=== PATIENT | female | born 1935 | race Caucasian/White ===

== ENCOUNTER 2017-10-23 09:08 | Inpatient (IN) | payer OTHER ==
--- NOTE | 2017-10-25 12:10 | R.PREADM ---
SCREENING DATE AND TIME 10/25/2017 10:18 (CDT) ANTICIPATED REHAB ADMISSION DATE 10/27/2017 REFERRING FACILITY [facility] REFERRAL DATE AND TIME 10/25/2017 10:18 (CDT) ACUTE ADMIT DATE 10/16/2017 Previous Rehabilitation(s): No. REFERRING PHYSICIAN Dayton Garcia REHAB FACILITY [facility] CLINICAL LIAISON Guille Argaon PHYSICIAN REVIEWER Dr. Daren Kim M.D. [facility]# [id number] [id number] NAME HARINDER HENSLEY AD[address]ESS [id number] [facility] PHONE [facility] [id number] DATE OF 1935 AGE 81 SSN# [id number] GENDER female MARITAL STATUS RACE white ADMIT FROM 02 - [facility] PRE-HOSPITAL LIVING SETTING 01 - Home (private home/apt. board/care, assisted living, senior living, transitional living) HOME TYPE AND DETAILS Type of home: single family house # of steps to enter the residence: 0 # of steps within the residence: 0 # of levels in the residence: 1 PRE-HOSPITAL LIVING WITH Family/Relatives FAMILY SUPPORT Yes PRIMARY FAMILY CONTACT NAME Lorena Guan PRIMARY FAMILY CONTACT PHONE PHONE PRIMARY FAMILY CONTACT ON ADM.? no IS PRIMARY FAMILY CONTACT AUTH. REP.? no 1ST EMERGENCY CONTACT Lorena Guan 1ST CONTACT PHONE PHONE 1ST CONTACT ON ADM. no IS 1ST CONTACT AUTH. REP.? no PHONE 2ND CONTACT ON ADM.? no PATIENT EMPLOYMENT STATUS Retired (for age) PATIENT EMPLOYER No Employer PAYOR INFORMATION: 1ST PAYOR NAME Medicare 1ST PAYOR PHONE 1ST PAYOR INJURY/ILLNESS DUE TO ACCIDENT? No ANOTHER CONSTITUTION PARTY RESPONSIBLE? No PRIMARY REHAB/ACUTE DIAGNOSIS: right bka ONSET DATE 10/16/2017 REHAB IMPAIRMENT CATEGORY (YAKOV): 10 Amputation, lower extremity (Amp/LE) MEETS 60% rule AFFECTED EXTREMITIES: RLE PRIMARY DIAGNOSIS-RELATED SURGERIES: Emergency Amputation of Limb(Unilateral Lower Limb Below the Knee (BK)) - performed by Dayton harper on 10/16/2017 COMORBID REHAB/ACUTE DIAGNOSES: - Non-Tiered Type 2 diabetes mellitus with diabetic neuropathy, unspecified (E11.40) - N/A hypertension pvd left bka INTERVENTIONS: - Hypertension Fluid management Medications VS - PVD Platt exercises Medications RISK FOR COMPLICATIONS: - Hypertension CVA Hypotension OK TIA - PVD Amputation Gangrene Infection Ischemic ulcers Sepsis Wounds SUMMARY OF ACUTE HOSPITALIZATION: Pt. is a 81 yo Right-handed white female. On 10/16/2017 she was admitted to [facility] and underwent emergency surgery for righ t bka (Amputation of Limb(Unilateral Lower Limb Below the Knee (BK))) by Dayton Garcia. Pre-morbidly, Pt. was independent/mod-I in Communication, Social Cognition, Self-Care, Sphincter Cont rol, Transfers Control, and Locomotion; and she had good Sphincter Control. Currently, she has deficits of Communication, Social Cognition, Balance, Self-Care, Endurance, Safety Awareness, Transfers Control, and Locomotion. Pt. is now referred to [facility] for acute in-patient rehabilitation in order to maximize patient's functional independence in activities of daily living, strength, ROM, and mobi lity. Patient has realistic goal of being discharged at assistance level 6-Juanito to reside at Home with Fam kali/Relatives. CONSULT: Consult Certified Prosthetic for prosthesis construction PAST MEDICAL HISTORY Type 2 diabetes mellitus with diabetic neuropathy, unspecified (E11.40) hypertension left bka pvd MEDICATION ALLERGIES: morphine ENVIRONMENTAL ALLERGIES: - Substance Allergies None Known - Other Allergies None Known CODE STATUS: Full code WEIGHT/HEIGHT/BMI: WEIGHT 123 lbs HEIGHT 4' 10" BMI 25.7 DIET: - Diet Type Regular - Diet - Solid Texture Regular - Diet - Liquid Texture Regular - Tube Feed N/A SKIN DIAGRAM: amputation on Right knee; extent - small; stage - NS(Not Stageable). Treatment - Per Physician's Orde rs. REVIEW OF SYSTEMS: - Gen Alert and awake Lying in bed No apparent distress Oriented to: person, time, and place - CVS RRR VITAL SIGNS Temperature: 98.4 F SBP/DBP: 160/70 Pulse: 78 Resp: 16 Vital signs stable, afebrile CURRENT SPHINCTER CONTROL: Pre-hospital bladder status: continent # of bladder accidents in the last 7 days prior to screenin Pre-hospital bowel status: continent # of bowel accidents in the last 7 days prior to screenin Last Bowel Movement Date: 10/25/2017 DETAILED CURRENT FUNCTIONAL STATUS: - Bladder accident frequency: Ind - No accidents in the past 7 days - Bowel accident frequency: Ind - No accidents in the past 7 days - Walking score based on distance walked: 1(<=50ft) FUNCTIONAL STATUS: - Self-Care A. Eating Ind sup B. Grooming Juanito sup C. Bathing Juanito sup D. Dressing - Upper Juanito Ronn E. Dressing - Lower Juanito Dep F. Toileting Dep Dep - Sphincter Control G: Bladder control Ind Dep H: Bowel control Ind Dep - Transfers Control I. Bed/Chair/Wheelchair Ind maxA J. Toilet Ind maxA K. Tub/Shower Ind maxA - Locomotion L. Walk/Wheelchair (B) Ind Dep M. Stairs Ind ADNO - Communication N. Comprehension (B) Ind Ronn O. Expression (B) Ind Ronn - Social Cognition P. Social Interaction Ind Ronn Q. Problem Solving Ind Ronn R. Memory Ind Ronn - Endurance Poor - Balance Poor - Safety Awareness Poor CURRENT FUNC. DEFICITS: Communication, Social Cognition, Balance, Self-Care, Endurance, Safety Awareness, Transfers Control, and Locomotion THERAPY NOTES FROM ACUTE CARE: Attached. SPECIAL NEEDS: - Safety Concerns Skin breakdown precautions needed due to skin breakdown risk PRECAUTIONS: - Weight Bearing Precaution NWB both LE PATIENT NEEDS ACTIVE AND ONGOING THERAPEUTIC INTERVENTION OF MULTIPLE THERAPY DISCIPLINES, INCLUDING: - Orthotics/Prosthetics Prosthetic Evaluation. - Occupational Therapy Evaluate and Treat. - Physical Therapy Evaluate and Treat. PATIENT NEEDS CLOSE MEDICAL SUPERVISION BY A REHABILITATION PHYSICIAN FOR: Bowel and Bladder Management Coordination of Treatment Team Diabetes Management Medical and Co-Morbidity Management Post-Op Complications Wound Care PATIENT REQUIRES 24X7 REHAB NURSING FOR MEDICAL AND FUNCTIONAL MGT. OF THE FOLLOWING DEFICITS: ADL's Ambulation Bowel and Bladder Management Cognition Communication Disease Management Medication Management Patient/Family Education Providing Safe Environment Skin Integrity Transfers PATIENT REQUIRES INTENSIVE, COORDINATED INTERDISCIPLINARY APPROACH TO REHAB: Arranging Home Equipment/Services Discharge Planning Family Intervention/Training Consulting Sme/Case Management PATIENT REHAB POTENTIAL: Expected level of measurable improvement will be of a practical value to patient's functional capacit y or adaptations to impairments Has a viable Discharge Plan Medically appropriate; condition is sufficiently stable to participate in intensive rehab program Patient is able and expected to receive 3 hours of individualized therapy daily on at least 5 of ever y 7 days Patient's prognosis for significant practical improvement within a reasonable period of time appears Good DISCHARGE PLAN: - Estimated Length of Stay (days) 11. - Consensus on plan Discharge plan has been discussed with primary caregiver. Patient/Family is in agreement with the gypsy n. Primary caregiver is in agreement with the plan. - Patient/Family Goals Return home with assistance. - Planned Living Setting Upon Discharge Home, to live with Family/Relatives. RECOMMENDED CARE LEVEL: IRF RECOMMENDATION DETAILS: Recommended Admission to Comprehensive Rehabilitation Program to Increase Functional [place] SCREENER'S COMPLETENESS CONFIRMATION: - Screening Confirmation The patient data collection on this preadmission screening form is finished PHYSICIANS REVIEW AND ADMISSION DETERMINATION Admit - Based on my review of the Pre-Admission Screening results, in my medical judgment and experie nce, I concur with the findings and recommend admission to [facility], as this patient requires an IRF level of care. SIGNATURE PANEL: Clinical Liaison - [electronically] signed by Olga Perez on 10/25/2017 at 10:47 (CDT) Clinical Liaison - [electronically] signed by Guille Aragon on 10/25/2017 at 12:07 (CDT) Physician Reviewer - [electronically] signed by Dr. Daren Kim M.D. on 10/25/2017 at 12:09 (CDT )
--- NOTE | 2017-10-25 18:56 | R.HP ---
FACILITY: [facility] ENCOUNTER DATE AND TIME: 10/25/2017 18:49 (CDT) MR#: [id number] NAME HARINDER HENSLEY ADDRESS: [address] [place] [address]: [place] [address] PHONE: DATE OF : 1935 AGE: 81 SSN# [id number] GENDER: Female DEXTERITY Right-handed MARITAL STATUS RACE White PRE-HOSPITAL LIVING SETTING 01 - Home (private home/apt. board/care, assisted living, halfway, transitional living) PRE-HOSPITAL LIVING WITH Family/Relatives ENCOUNTER PHYSICIAN: Dr. Daren Kim M.D. REFERRING DOCTOR: Dayton Garcia DATE OF ADMISSION: 10/25/2017 18:49 (Central Daylight Time) REFERRING FACILITY [facility] HOME TYPE AND DETAILS: Type of home: single family house # of steps to enter the residence: 0 # of steps within the residence: 0 # of levels in the residence: 1 ADMISSION DIAGNOSIS: right bka ONSET DATE: 10/16/2017 PRIMARY DIAGNOSIS-RELATED SURGERIES: Emergency Amputation of Limb(Unilateral Lower Limb Below the Knee (BK)) - performed by Dayton harper on 10/16/2017 SECONDARY/COMORBID DIAGNOSES (TIERED): - Non-Tiered Type 2 diabetes mellitus with diabetic neuropathy, unspecified (E11.40) - N/A hypertension pvd left bka HISTORY OF PRESENT ILLNESS (HPI): Pt. is a 81 yo Right-handed white female. On 10/16/2017 she was admitted to [facility] and underwent emergency surgery for righ t bka (Amputation of Limb(Unilateral Lower Limb Below the Knee (BK))) by Dayton Garcia. Pre-morbidly, Pt. was independent/mod-I in Communication, Social Cognition, Self-Care, Sphincter Cont rol, Transfers Control, and Locomotion; and she had good Sphincter Control. Currently, she has deficits of Communication, Social Cognition, Balance, Self-Care, Endurance, Safety Awareness, Transfers Control, and Locomotion. Pt. is now referred to [facility] for acute in-patient rehabilitation in order to maximize patient's functional independence in activities of daily living, strength, ROM, and mobi lity. Patient has realistic goal of being discharged at assistance level 6-Juanito to reside at Home with Fam kali/Relatives. MEDICATION ALLERGIES: morphine ENVIRONMENTAL ALLERGIES: - Substance Allergies None Known - Other Allergies None Known PAST MEDICAL HISTORY: Type 2 diabetes mellitus with diabetic neuropathy, unspecified (E11.40) hypertension left bka pvd FAMILY HISTORY: Family history is not contributory. SOCIAL HISTORY: - Home Living Family/Relatives REVIEW OF SYSTEMS: - Gen No Chills No Fatigue No Fever - Eyes No Double Vision No itchiness - ENMT Difficulty Swallowing - CVS No Chest Discomfort No Chest Pain No Fatigue No Weight Gain - Resp No Cough No Shortness of Breath - GI Continent No Abdominal Pain No Constipation No Diarrhea - Continent No Kidney Pain No Painful Urination No Urinary Urgency - MSK No Joint Pain No Muscle Cramps No Stiffness - Skin No Itching No Rash No Suspicious Lesions - Neuro Coordination Difficulty Difficulty with Concentration Memory Loss No Seizures Weakness - Psych No Anxiety No Depression No HIV Exposure No Persistent Infections No Seasonal Allergies - Endo No Cold/Heat Intolerance No Excessive Hunger No Excessive Thirst No Excessive Urination PHYSICAL EXAM - Gen Alert and awake Lying in bed No apparent distress Oriented to: person, time, and place - Skin No breakdowns Mild decreased right nasolabial fold with good excursion. - Eyes No abnormalities - ENMT No abnormalities - Neck No abnormalities - CVS RRR - Chest Clear - Abd +bowel sounds - GI + bowel sound Deferred - No abnormalities - Ext no edema - MSK 4+/5 weakness in right lower extremity, 3/5 weakness in the right hand flexion and extension. - Neuro 4+/5 weakness in right lower extremity, 3/5 weakness in the right hand flexion and extension. - Psych No abnormalities - OTHER Mild expressive aphasia, decrease speed of information processing. VITAL SIGNS Temperature: 98.4 F SBP/DBP: 160/70 Pulse: 78 Resp: 16 NURSING: - Shower allowing shower - Lab Results blood Sugar Check ACHS - Skin care per protocol PRECAUTIONS: - Weight Bearing Precaution NWB both LE ACTIVITIES OOB only with supervision FUNCTIONAL STATUS: - Self-Care A. Eating Ind sup B. Grooming Juanito sup C. Bathing Juanito sup D. Dressing - Upper Juanito Ronn E. Dressing - Lower Juanito Dep F. Toileting Dep Dep - Sphincter Control G: Bladder control Ind Dep H: Bowel control Ind Dep - Transfers Control I. Bed/Chair/Wheelchair Ind maxA J. Toilet Ind maxA K. Tub/Shower Ind maxA - Locomotion L. Walk/Wheelchair (B) Ind Dep M. Stairs Ind ADNO - Communication N. Comprehension (B) Ind Ronn O. Expression (B) Ind Ronn - Social Cognition P. Social Interaction Ind Ronn Q. Problem Solving Ind Ronn R. Memory Ind Ronn - Endurance Poor - Balance Poor - Safety Awareness Poor CURRENT FUNC. DEFICITS: Communication, Social Cognition, Balance, Self-Care, Endurance, Safety Awareness, Transfers Control, and Locomotion ASSESSMENT: Pt. is a 81 yo Right-handed white female.On 10/16/2017 she was admitted to [facility] and underwent emergency surgery for right bka (Amputation of Limb(Unilateral Lower Limb Below the Kn ee (BK))) by Dayton Garcia.Pre-morbidly, Pt. was independent/mod-I in Communication, Social Cogni tion, Self-Care, Sphincter Control, Transfers Control, and Locomotion; and she had good Sphincter Con trol.Currently, she has deficits of Communication, Social Cognition, Balance, Self-Care, Endurance, S afety Awareness, Transfers Control, and Locomotion.Pt. is now referred to [facility] for acute in-patient rehabilitation in order to maximize patient's functional independence in activities of daily living, strength, ROM, and mobility.- Rehab Goal Patient has realistic goal of being discharged at assistance level 6-Juanito to reside at Home with Fam kali/Relatives. REHAB PLAN: - Physical Therapy Gait dysfunction - to improve, our physical therapists will perform initial evaluation of pt's status upon admission and devise an individualized program for Gait Training, and Wheel Chair mobility Inability to transfer - to improve, our physical therapists will perform initial evaluation of pt's s tatus upon admission and devise an individualized program for Bed mobility Need for home safety evaluation - to improve, our physical therapists will perform initial evaluation of pt's status upon admission and devise an individualized program for Home Evaluation Need in caregiver upon discharge - to improve, our physical therapists will perform initial evaluatio n of pt's status upon admission and devise an individualized program for Caregiver Training New precaution - to improve, our physical therapists will perform initial evaluation of pt's status u beau admission and devise an individualized program for Patient precaution education Poor balance - to improve, our physical therapists will perform initial evaluation of pt's status upo n admission and devise an individualized program for Balance Training Poor endurance - to improve, our physical therapists will perform initial evaluation of pt's status u beau admission and devise an individualized program for Endurance Training Weakness - to improve, our physical therapists will perform initial evaluation of pt's status upon ad mission and devise an individualized program for Aquatic Therapy, Neuromuscular Reeducation, and Stre ngthening Achieving independence - to improve, our physical therapists will perform initial evaluation of pt's status upon admission and devise an individualized program for Community Reintegration Activities - Occupational Therapy ADL deficits - to improve, our occupation therapists will perform initial evaluation of pt's status u beau admission and devise an individualized program for Bathing, Bed mobility, Community Reintegration , Cooking, Dressing, Eating, Fine Motor Skills, Grooming, Homemaking, Kitchen Mobility, Laundry, Brigid ent Education, Safety Awareness, Splinting - Positioning, Transfers(Toilet, Tub, Shower), and Wheel C hair Management Cognitive deficits - to improve, our occupation therapists will perform initial evaluation of pt's st atus upon admission and devise an individualized program for Cognition - orientation Need for child care education coordinator - to improve, our occupation therapists will perform initial evaluation of pt's s tatus upon admission and devise an individualized program for Caregiver Training Weakness - to improve, our occupation therapists will perform initial evaluation of pt's status upon admission and devise an individualized program for Aquatic Therapy, Balance, Endurance, UE ROM, and U E strengthening MEDICAL PLAN: - Diet Type Start Regular - Diet - Liquid Texture Start Regular - Tube Feed Start N/A - Lab Results blood Sugar Check ACHS - Weight Bearing Precaution WBAT right wrist - Skin care per protocol - N/A Perform Consult Certified Prosthetic for prosthesis construction - Diet - Solid Texture Regular - Shower shower DISCHARGE PLAN: - Estimated Length of Stay (days) 11. - Consensus on plan Discharge plan has been discussed with primary caregiver. Patient/Family is in agreement with the gypsy n. Primary caregiver is in agreement with the plan. - Patient/Family Goals Return home with assistance. - Planned Living Setting Upon Discharge Home, to live with Family/Relatives. SIGNATURE PANEL: (CDT)
--- NOTE | 2017-10-25 18:59 | PAPE ---
PATIENT: [facility] MR# [id number] REFERRING DOCTOR Dayton Garcia EVALUATION DATE AND TIME 10/25/2017 18:57 (CDT) NAME HARINDER HENSLEY DATE OF 1935 AGE 81 PHONE N# [id number] GENDER female EVALUATING PHYSICIAN Dr. Daren Kim M.D. ADMISSION DIAGNOSIS: right bka ONSET DATE 10/16/2017 SECONDARY/COMORBID DIAGNOSES TIERED: - Non-Tiered Type 2 diabetes mellitus with diabetic neuropathy, unspecified (E11.40) - N/A hypertension pvd left bka POST-ADMISSION FUNCTIONAL/MEDICAL STATUS: - Bladder Same accident frequency: Ind - No accidents in the past 7 days - Bowel Same accident frequency: Ind - No accidents in the past 7 days - Walking Same score based on distance walked: 1(<=50ft) STATUS CHANGE EVALUATION: No change in Functional or Medical Status is identified compared with Pre-Admission screening. PATIENT NEEDS CLOSE MEDICAL SUPERVISION BY A REHABILITATION PHYSICIAN FOR: Bowel and Bladder Management Coordination of Treatment Team Diabetes Management Medical and Co-Morbidity Management Post-Op Complications Wound Care PATIENT REQUIRES 24X7 REHAB NURSING FOR MEDICAL AND FUNCTIONAL MGT. OF THE FOLLOWING DEFICITS: ADL's Ambulation Bowel and Bladder Management Cognition Communication Disease Management Medication Management Patient/Family Education Providing Safe Environment Skin Integrity Transfers PATIENT REQUIRES INTENSIVE, COORDINATED INTERDISCIPLINARY APPROACH TO REHAB: Arranging Home Equipment/Services Discharge Planning Family Intervention/Training Lung Splitter/Case Management LIST OF IDENTIFIED AND POTENTIAL PROBLEMS: Alteration in leisure activities Bladder, Incontinence Blood Pressure, Hypertension/hypotension Issues Bowel, Incontinence Diabetes, Hyperglycemia/hypoglycemia Issues Infection, Actual or Potential Mobility Impaired Pain, Alteration in Comfort Self Care Deficit Skin Integrity, Actual or Potential Urinary Tract Infection (UTI), Actual or Potential RISK FOR COMPLICATIONS - Hypertension CVA. Hypotension. VT. TIA. - PVD Amputation. Gangrene. Infection. Ischemic ulcers. Sepsis. Wounds. INTERVENTIONS - Hypertension - PVD Platt exercises. Medications. PATIENT COULD BE AT RISK FOR COMPLICATIONS FROM ADVERSE MEDICAL CONDITIONS DUE TO HIS/HER COMORBIDITI ES AND THE RIGORS OF THE INTENSIVE REHABILLITATION PROGRAM. METHODS OR INTERVENTIONS TO AVOID COMPLIC ATIONS INCLUDE: - Bleeding Assess lab values and manage abnormalities. Nursing to teach precautions for anti-coagulation therapy . Wound to be assessed every shift. - Infection Clinical staff to assess and manage the signs and symptoms of infection including fever, redness, war mth, etc. - Urinary Tract Infection - Falls Patient will be evaluated for Fall Precautions and will be placed on Fall Precautions as indicated pe r protocol. - Skin Breakdown Nursing will assess skin daily using assessment tool and will place on Skin Breakdown Precautions as indicated per protocol. - Pain Clinical staff may employ non-medication methods such as massage, distraction, decrease stimulus, etc . as needed. Clinical staff will assess patient's pain level every shift per protocol to assess and e nsure pain management effectiveness. Medications will be given and the pain level re-assessed. PRELIMINARY PLAN OF CARE: - Physical Therapy Patient needs Physical Therapy for a daily minimum of 1.5 hours at least 5 out of 7 days, to improve: Mobility, Strengthening, Transfers, Stretching, ROM, Endurance, Ability to manage stairs, Gait, and Balance. - Speech Therapy Patient needs Speech Therapy for a daily minimum of 0.5 hours at least 5 out of 7 days, to improve: S wallowing, Cognition, Language Skills, and Compensatory Strategies. - Rehabilitation Nursing Patient requires 24x7 Rehabilitation Nursing for: Pain Issues, Identifying and preventing risk factor s, Monitoring and reporting current medical conditions, Assisting with ambulation and transfer, Sapphire ting with all ADL-s, Teaching patients about disease process and medications, Family teaching, Provid ing safe environment, Bowel and Bladder Issues, Skin Integrity, and Medication Management. Patient needs Lung Splitter and/or Case Management for: Discharge Planning, Arranging Home Equipmen t or Services, and Family Interventions. - Dietary and Nutrition Services Patient needs Dietary and Nutrition Services for: Adequate Nutrition, Nutritional Supplements, and Nu tritional Education. - Occupational Therapy Patient needs Occupational Therapy for a daily minimum of 1.5 hours at least 5 out of 7 days, to impr ove Activities of Daily Living, including: Eating, Grooming, Bathing, Dressing, Toileting, Toilet Tra nsfers, Community Reintegration, Higher functional activities, Adaptive Equipment, Splinting, Househo ld Tasks, and Other activities as determined. POTENTIAL FUNCTIONAL GOALS FOR PATIENT TO ACHIEVE BY DISCHARGE: - Safety Precaution Patient will remain free from falls or injury at time of discharge. - Bed Mobility Patient will perform bed mobility at 4-Ronn level of assistance. - Transfers Patient will complete transfers from bed to chair at 4-Ronn level of assistance. - Mobility Patient will ambulate 150 ft with 4-Ronn level of assistance with RW. PATIENT REHAB POTENTIAL Expected level of measurable improvement will be of a practical value to patient's functional capacit y or adaptations to impairments Has a viable Discharge Plan Medically appropriate; condition is sufficiently stable to participate in intensive rehab program Patient is able and expected to receive 3 hours of individualized therapy daily on at least 5 of ever y 7 days Patient's prognosis for significant practical improvement within a reasonable period of time appears Good DISCHARGE PLAN: - Estimated Length of Stay (days) 11. - Consensus on plan Discharge plan has been discussed with primary caregiver. Patient/Family is in agreement with the gypsy n. Primary caregiver is in agreement with the plan. - Patient/Family Goals Return home with assistance. - Planned Living Setting Upon Discharge Home, to live with Family/Relatives. CONCLUSION ON REHABILITATION NECESSITY: I have evaluated patient's pre-admission functional status and, comparing it to the patient's post-ad mission functional status now, I conclude that the pre-admission assessment was accurate. Patient's c ondition on admission supports the medical necessity of admission to IRF. It is safe to proceed with patient's therapy program. SIGNATURE PANEL: (CDT)
--- OUTSIDE RECORDS SUMMARY | 2017-10-28 15:19 | XMS REPORT | Clinical Summary ---
:1935 Author Organization [facility] Address [address] [place] [address] Care Team Providers Name Role Phone Alistair Lindsey MD Primary Care Provider Allergies No Known Allergies Current Medications Prescription Sig. Disp. Refills Start Date End Date Status telmisartan-hydrochlorot Take 0.5 tablets by Active hiazid (MICARDIS HCT) mouth daily as 40-12.5 mg per tablet needed (at bedtime if SBP>130). atorvastatin (LIPITOR) Take 40 mg by mouth Active 40 MG tablet nightly. insulin GLARGINE Inject 10 Units Active (LANTUS) 100 unit/mL under the skin injection (vial) nightly. thyroid, pork, (EDUCATIONAL TECHNOLOGIST Take 90 mg by mouth Active THYROID) 30 mg tablet daily before breakfast. sitaGLIPtin (JANUVIA) Take 100 mg by mouth Active 100 MG tablet daily with breakfast. progesterone Take 100 mg by mouth Active (PROMETRIUM) 100 MG nightly. capsule pantoprazole (PROTONIX) Take 40 mg by mouth Active 40 MG EC tablet daily before lunch. estradiol (ESTRACE) 0.5 Take 0.5 mg by mouth Active MG tablet daily with lunch. insulin lispro (HumaLOG) Inject 3-10 Units Active 100 unit/mL injection under the skin 3 (three) times a day before meals. SLIDING SCALE if BG < 200 no inuslin, IF NT=707 - 250=3 units, 251 - 300=6 units, 301 - 350=8 units, BG > 350=10 units incmr-mt-7-vcu-ico-paisp Take 1 capsule by Active ho-ast (MEGARED OMEGA-3 mouth 2 (two) times KRILL OIL) [id number] a day. mg capsule zinc gluconate 50 mg Take 50 mg by mouth Active tablet 3 (three) times a week. Take Saturday, Saturday & Saturday magnesium chloride Take 173 tablets by Active (SLOW-MAG) 71.5 mg mouth daily with tablet,delayed release lunch. (DR/EC) alpha lipoic acid 200 mg Take 200 mg by mouth Active capsule nightly. folic acid-B complex,C Take 1 tablet by Active no.17 5 mg tablet mouth nightly. Active Problems Problem Noted Date PVD (peripheral vascular disease) 10/23/2016 Acute GI bleeding 10/22/2016 GI bleed 10/22/2016 Hx of right BKA 07/21/2016 Postoperative wound infection 07/13/2016 Wound dehiscence 07/04/2016 Wound infection after surgery 07/02/2016 Hyperlipidemia 06/18/2016 Cellulitis of leg, right 06/14/2016 PVD (peripheral vascular disease) 05/23/2016 DM (diabetes mellitus) 05/23/2016 Ischemic pain of right foot 05/21/2016 Encounters Date Type Specialty Care Team Description 12/21/2016 Infusion Oncology Alistair Lindsey Acute GI bleeding ( Primary Dx) 12/21/2016 Infusion Oncology Acute GI bleeding (Primary Dx) after 10/27/2016 Immunizations Name Dates Previously Given Next Due Pneumococcal Conjugate 13-Valent 07/06/2016 (Deferred: ) Family History Medical History Relation Name Comments Diabetes Daughter Diabetes Father Diabetes Mother Relation Name Status Comments Daughter Father Mother Social History Tobacco Use Types Packs/Day Years Used Date Current Every Day Smoker Cigarettes 66 Alcohol Use Drinks/Week oz/Week Comments No Sex Assigned at Date Recorded Not on file Last Filed Vital Signs Vital Sign Reading Time Taken Blood Pressure 141/64 12/21/2016 4:10 PM CDT Pulse 77 12/21/2016 4:10 PM CDT Temperature 36.7 C (98 F) 12/21/2016 4:10 PM CDT Respiratory Rate 16 12/21/2016 4:10 PM CDT Oxygen Saturation 96% 12/21/2016 4:10 PM CDT Inhaled Oxygen Concentration - - Weight - - Height - - Body Mass Index - - Plan of Treatment Health Maintenance Due Date Last Done Comments DIABETIC FOOT EXAM 12/22/1945 DIABETIC RETINAL EYE EXAM 12/22/1945 URINE MICROALBUMIN 12/22/1945 SHINGRIX VACCINE (#1) 12/22/1985 ZOSTER VACCINE 1995 PNEUMOCOCCAL POLYSACCHARIDE VACCINE AGE 65 AND OVER 12/22/2000 PNEUMOCOCCAL-13 12/22/2000 INFLUENZA VACCINE 10/23/2017 Implants Implanted Type Area Document Management Specialist Device Expiration Model / Identifier Date Serial / Lot Graft Surgcl Cryovein Sphnos Vein 80cm 3-6mm - [id number] - [id number] Cardiovascular Right: [employer] 10/25/2025 [id number] / Implanted: Qty: 1 on 05/24/2016 by Siva Thakur MD Implants Leg [id number] / Patch Vasclr Perph 0.8x8cm Vascu-Guard - [id number] Vascular Graft Right: BREWER 08/15/2020 [id number] / Implanted: 05/24/2016 (Quantity not on file) Artery, BIOSCIENCE [id number] / Femoral [id number] Procedures Procedure Name Priority Date/Time Associated Diagnosis Comments TRANSFUSE RED BLOOD Routine 12/21/2016 4:27 PM Acute GI bleeding CELLS CDT TRANSFUSE RED BLOOD Routine 12/21/2016 1:01 PM Acute GI bleeding CELLS CDT POC GLUCOSE Routine 12/21/2016 10:38 AM Results for this CDT procedure are in the results section. PREPARE RBC Timed 12/20/2016 11:00 AM Acute GI bleeding Results for this CDT procedure are in the results section. TYPE AND SCREEN Timed 12/20/2016 11:00 AM Results for this CDT procedure are in the results section. after 10/27/2016 Results Transfuse RBC (12/21/2016 4:27 PM)Only the most recent of3 resultswithin the time period is included.POC glucose (12/21/2016 10:38 AM) POC glucose 266 (H) 65 - 99 mg/dL [facility] DEPARTMENT OF PATHOLOGY AND Comment: Edkimo Meter ID: [id number] Certified Ophthalmic Medical Technician: Dominic Mehta Performing Organization Address City/State/Zipcode Phone Number [facility] DEPARTMENT OF PATHOLOGY AND [address] [place] [address] [place] [address] Edkimo Prepare RBC, 2 Units (12/20/2016 11:00 AM) Product name Red Blood Cells -1, [facility] DEPARTMENT OF Leukored PATHOLOGY AND GENOMIC MEDICINE Unit number [id number] [facility] DEPARTMENT OF PATHOLOGY AND GENOMIC MEDICINE Product code [id number] [facility] DEPARTMENT OF PATHOLOGY AND GENOMIC MEDICINE Dispense status Transfused [facility] DEPARTMENT OF PATHOLOGY AND GENOMIC MEDICINE Blood expiration date 20170110 [facility] DEPARTMENT OF PATHOLOGY AND GENOMIC MEDICINE Blood type code 6200 [facility] DEPARTMENT OF PATHOLOGY AND GENOMIC MEDICINE Blood type A POSITIVE [facility] DEPARTMENT OF PATHOLOGY AND GENOMIC MEDICINE Product name Red Blood Cells -1, [facility] DEPARTMENT OF Leukored PATHOLOGY AND GENOMIC MEDICINE Unit number [id number] [facility] DEPARTMENT OF PATHOLOGY AND GENOMIC MEDICINE Product code [id number] [facility] DEPARTMENT OF PATHOLOGY AND GENOMIC MEDICINE Dispense status Transfused [facility] DEPARTMENT OF PATHOLOGY AND GENOMIC MEDICINE Blood expiration date 20170110 [facility] DEPARTMENT OF PATHOLOGY AND GENOMIC MEDICINE Blood type code 6200 [facility] DEPARTMENT OF PATHOLOGY AND GENOMIC MEDICINE Blood type A POSITIVE [facility] DEPARTMENT OF PATHOLOGY AND GENOMIC MEDICINE Performing Organization Address City/[facility] Phone Number [facility] DEPARTMENT OF PATHOLOGY AND [id number] [place] [address] [place] [address] GENOMIC MEDICINE Type and screen (12/20/2016 11:00 AM) ABO grouping A [facility] DEPARTMENT OF PATHOLOGY AND GENOMIC MEDICINE Rh type POS [facility] DEPARTMENT OF PATHOLOGY AND GENOMIC MEDICINE Antibody screen NEG [facility] DEPARTMENT OF PATHOLOGY AND GENOMIC MEDICINE Performing Organization Address City/[facility] Phone Number [facility] DEPARTMENT OF PATHOLOGY AND [id number] [place] [address] [address] [place] [id number] GENOMIC MEDICINE after 10/27/2016 Insurance Payer Benefit Plan / Group Subscriber ID Type Phone Address [facility] xxxxxxxxxxx Home: [id number] [place] [phone] [address]
[2017-10-28] MEDS ORDERED: CYCLOBENZAPRINE 10 MG TAB PO PRN (16:26)
[2017-10-28] MEDS ORDERED: QUETIAPINE 25 MG TAB PO PRN (16:26)
[2017-10-28] MEDS ORDERED: GLUCAGON 1 MG/VIAL IM PRN (16:51)
[2017-10-28] MEDS ORDERED: D50W 25 GM/50 ML SYRINGE IV PRN (16:51)
[2017-10-28] MEDS ORDERED: TELMISARTAN PO SCH (17:00)
[2017-10-28] MEDS ORDERED: HYDROCHLOROTHIAZIDE PO SCH (17:00)
[2017-10-28] MEDS ORDERED: HOME MED 1 EA UNK PO SCH (17:00)
[2017-10-28] MEDS ORDERED: CLOPIDOGREL 75 MG TABLET PO SCH (17:00)
[2017-10-28] MEDS ORDERED: FERROUS SULFATE 325 MG TAB PO SCH (17:00)
[2017-10-28] MEDS ORDERED: ENOXAPARIN 40 MG/0.4 ML SQ SCH (17:00)
[2017-10-28] MEDS: FERROUS SULFATE 325 MG TAB PO SCH (18:30)
[2017-10-28] MEDS: CLOPIDOGREL 75 MG TABLET PO SCH (18:30)
[2017-10-28] MEDS: SUPER B COMPLEX PO SCH (18:52)
[2017-10-28] MEDS: INSULIN -REGULAR HUMAN 50 UNIT/0.5 ML ML SQ SCH (20:55)
[2017-10-29 05:57] LABS: Absolute Lymphocytes (CBC) 1.8 K/uL (0.7-4.9); Absolute Neutrophil 7.7 K/uL (1.8-8.0); Basophils % 1.2 % (0-1.3); Eosinophils % 4.2 % (0-4.4); Hematocrit 30.9 % (36.0-45.0); Lymphocytes % 15.9 % (15.3-44.8); MCH 30.5 pg (27.0-35.0); MCV 89.4 fL (80-100); MPV 7.1 fL (7.6-11.3); Monocytes % 9.3 % (3.3-12.3); RBC Red Blood Cell Count 3.46 M/uL (3.86-4.86)
[2017-10-29 06:11] LABS: Albumin 2.5 g/dL (3.4-5.0); BUN Blood Urea Nitrogen 17 mg/dL (7-18); Bicarbonate 26 mmol/L (21-32); Glucose Level 209 mg/dL (74-106); Potassium 4.2 mmol/L (3.5-5.1); Prealbumin 16.7 mg/dL (20-40); Sodium Level 135 mmol/L (136-145)
[2017-10-29] MEDS: INSULIN -REGULAR HUMAN 50 UNIT/0.5 ML ML SQ SCH ×4 (07:30→20:51)
[2017-10-29] MEDS ORDERED: SUPER B COMPLEX PO SCH (08:00)
[2017-10-29] MEDS: VITAMIN D 1000 UNIT TAB PO SCH (08:32)
[2017-10-29] MEDS: SITAGLIPTIN PHOS 100 MG TAB PO SCH (08:32)
[2017-10-29] MEDS: ENOXAPARIN 40 MG/0.4 ML SQ SCH (08:33)
[2017-10-29] MEDS ORDERED: MELATONIN 3 MG TABLET PO PRN (15:04)
[2017-10-29] MEDS ORDERED: DOCUSATE NA/SENNA CONC 1 TAB PO PRN (15:04)
[2017-10-29] MEDS: FERROUS SULFATE 325 MG TAB PO SCH (16:03)
[2017-10-29] MEDS: CLOPIDOGREL 75 MG TABLET PO SCH (16:04)
[2017-10-29] MEDS: SUPER B COMPLEX PO SCH (19:15)
[2017-10-29] MEDS: GABAPENTIN 100 MG CAP PO SCH (19:15)
[2017-10-30 05:56] LABS: Urine Appearance CLEAR; Urine Bilirubin NEGATIVE (NEG); Urine Blood NEGATIVE (NEG); Urine Color YELLOW; Urine Glucose TRACE (NEG); Urine Protein NEGATIVE (NEG); Urine Urobilinogen 0.2 mg/dL (0.2-1.0); Urine pH 6.5 (5.0-7.0)
[2017-10-30 06:18] LABS: Urine Bacteria <20 /HPF (<20); Urine RBC <5 /HPF (NONE SEEN)
[2017-10-30 06:19] LABS: Urine Culture Reflex Order NOT NEEDED
[2017-10-30] MEDS: ENOXAPARIN 40 MG/0.4 ML SQ SCH (06:54)
[2017-10-30] MEDS ORDERED: HYDROCHLOROTHIAZIDE PO SCH (08:00)
[2017-10-30] MEDS ORDERED: TELMISARTAN PO SCH (08:00)
[2017-10-30] MEDS: GABAPENTIN 100 MG CAP PO SCH ×2 (08:38→19:29)
[2017-10-30] MEDS: VITAMIN D 1000 UNIT TAB PO SCH (08:38)
[2017-10-30] MEDS: SITAGLIPTIN PHOS 100 MG TAB PO SCH (08:39)
[2017-10-30] MEDS: INSULIN -REGULAR HUMAN 50 UNIT/0.5 ML ML SQ SCH ×4 (08:40→21:10)
[2017-10-30 10:22] VITALS: BMI 26.3
[2017-10-30] MEDS ORDERED: PNEUMOCOCCAL VACCINE 0.5 ML IMVAC ONE (14:00)
[2017-10-30] MEDS: TELMISARTAN PO SCH (17:00)
[2017-10-30] MEDS: HYDROCHLOROTHIAZIDE PO SCH (17:00)
[2017-10-30] MEDS: FERROUS SULFATE 325 MG TAB PO SCH (17:42)
[2017-10-30] MEDS: CLOPIDOGREL 75 MG TABLET PO SCH (17:42)
[2017-10-30] MEDS: ACETAMINOPHEN 500 MG TAB PO PRN (17:42)
[2017-10-30] MEDS: SUPER B COMPLEX PO SCH (19:29)
[2017-10-30] MEDS: PROMOD 30 ML DOSE PO SCH (19:29)
[2017-10-31 06:08] LABS: Absolute Lymphocytes (CBC) 1.5 K/uL (0.7-4.9); Absolute Monocytes 1.1 K/uL (0.1-1.3); Absolute Neutrophil 9.6 K/uL (1.8-8.0); Basophils % 1.1 % (0-1.3); Eosinophils % 3.3 % (0-4.4); Lymphocytes % 11.5 % (15.3-44.8); MCH 31.2 pg (27.0-35.0); MCV 89.7 fL (80-100); MPV 7.2 fL (7.6-11.3); Monocytes % 8.5 % (3.3-12.3); RBC Red Blood Cell Count 3.46 M/uL (3.86-4.86)
[2017-10-31 06:28] LABS: Albumin 2.7 g/dL (3.4-5.0); Prealbumin 18.4 mg/dL (20-40)
[2017-10-31] MEDS: INSULIN -REGULAR HUMAN 50 UNIT/0.5 ML ML SQ SCH ×4 (07:30→21:15)
[2017-10-31] MEDS: VITAMIN D 1000 UNIT TAB PO SCH (08:08)
[2017-10-31] MEDS: ENOXAPARIN 40 MG/0.4 ML SQ SCH (08:08)
[2017-10-31] MEDS: GABAPENTIN 100 MG CAP PO SCH ×2 (08:08→20:46)
[2017-10-31] MEDS: SITAGLIPTIN PHOS 100 MG TAB PO SCH (08:08)
[2017-10-31] MEDS: PROMOD 30 ML DOSE PO SCH ×2 (08:09→20:46)
[2017-10-31] MEDS: ACETAMINOPHEN 500 MG TAB PO PRN (08:09)
[2017-10-31] MEDS: CLOPIDOGREL 75 MG TABLET PO SCH (17:05)
[2017-10-31] MEDS: FERROUS SULFATE 325 MG TAB PO SCH (17:05)
[2017-10-31] MEDS: SUPER B COMPLEX PO SCH (17:10)
[2017-10-31] MEDS ORDERED: INSULIN -REGULAR HUMAN 50 UNIT/0.5 ML ML ONE (21:18)
[2017-11-01] MEDS: ACETAMINOPHEN 500 MG TAB PO PRN (05:27)
[2017-11-01] MEDS: ENOXAPARIN 40 MG/0.4 ML SQ SCH (07:05)
[2017-11-01] MEDS ORDERED: glipiZIDE 5 MG TAB PO SCH (07:30)
[2017-11-01] MEDS: INSULIN -REGULAR HUMAN 50 UNIT/0.5 ML ML SQ SCH ×4 (07:30→21:21)
[2017-11-01] MEDS ORDERED: SITAGLIPTIN PHOS 100 MG TAB PO SCH (08:00)
[2017-11-01] MEDS: SITAGLIPTIN PHOS 100 MG TAB PO SCH (08:11)
[2017-11-01] MEDS: GABAPENTIN 100 MG CAP PO SCH (08:11)
[2017-11-01] MEDS: PROMOD 30 ML DOSE PO SCH ×2 (08:12→20:42)
[2017-11-01] MEDS: VITAMIN D 1000 UNIT TAB PO SCH (08:12)
--- NOTE | 2017-11-01 09:40 | P.RH.PN ---
Estimated Length of Stay: 14 Expected Discharge Date: 11/11/17 Discharge Disposition Plan: Home Family Support: Yes Skilled Nursing Goal: Mobility, Transfers, Self Care Vital Signs: Last Vital Signs Temp 97.2 F 10/31/17 19:59 Pulse 72 10/31/17 19:59 Resp 18 10/31/17 19:59 BP 125/68 10/31/17 19:59 Pulse Ox 98 10/31/17 19:59 Laboratory: Laboratory Last Values WBC 12.7 K/uL (4.3-10.9) H D 10/31/17 05:29 RBC 3.46 M/uL (3.86-4.86) L 10/31/17 05:29 Hgb 10.8 g/dL (12.0-15.0) L 10/31/17 05:29 Hct 31.0 % (36.0-45.0) L 10/31/17 05:29 MCV 89.7 fL (80-100) 10/31/17 05:29 MCH 31.2 pg (27.0-35.0) 10/31/17 05:29 MCHC 34.8 g/dL (32.0-36.0) 10/31/17 05:29 RDW 14.9 % (12.1-15.2) 10/31/17 05:29 Plt Count 702 K/uL (152-406) H 10/31/17 05:29 MPV 7.2 fL (7.6-11.3) L 10/31/17 05:29 Neutrophils % 75.6 % (41.7-73.7) H 10/31/17 05:29 Lymphocytes % 11.5 % (15.3-44.8) L 10/31/17 05:29 Monocytes % 8.5 % (3.3-12.3) 10/31/17 05:29 Eosinophils % 3.3 % (0-4.4) 10/31/17 05:29 Basophils % 1.1 % (0-1.3) 10/31/17 05:29 Absolute Neutrophils 9.6 K/uL (1.8-8.0) H 10/31/17 05:29 Absolute Lymphocytes 1.5 K/uL (0.7-4.9) 10/31/17 05:29 Absolute Monocytes 1.1 K/uL (0.1-1.3) 10/31/17 05:29 Absolute Eosinophils 0.4 K/uL (0-0.5) 10/31/17 05:29 Absolute Basophils 0.1 K/uL (0-0.5) 10/31/17 05:29 Sodium 136 mmol/L (136-145) 10/31/17 05:29 Potassium 5.0 mmol/L (3.5-5.1) 10/31/17 05:29 Chloride 103 mmol/L (98-107) 10/31/17 05:29 Carbon Dioxide 28 mmol/L (21-32) 10/31/17 05:29 BUN 21 mg/dL (7-18) H 10/31/17 05:29 Creatinine 0.70 mg/dL (0.55-1.3) 10/31/17 05:29 Estimated GFR 80 mL/min (=/>90) L 10/31/17 05:29 Glucose 190 mg/dL (74-106) H 10/31/17 05:29 POC Glucose 188 mg/dl (65-120) H 11/01/17 07:14 Calcium 8.9 mg/dL (8.5-10.1) 10/31/17 05:29 Magnesium 2.0 mg/dL (1.8-2.4) 10/29/17 05:35 Albumin 2.7 g/dL (3.4-5.0) L 10/31/17 05:29 Prealbumin 18.4 mg/dL (20-40) L 10/31/17 05:29 Urine Color Yellow 10/30/17 05:05 Urine Appearance Clear 10/30/17 05:05 Urine pH 6.5 (5.0-7.0) 10/30/17 05:05 Ur Specific [place] 1.010 (1.005-1.030) 10/30/17 05:05 Urine Ketones Negative (NEG) 10/30/17 05:05 Urine Blood Negative (NEG) 10/30/17 05:05 Urine Nitrite Negative (NEG) 10/30/17 05:05 Urine Bilirubin Negative (NEG) 10/30/17 05:05 Urine Urobilinogen 0.2 mg/dL (0.2-1.0) 10/30/17 05:05 Ur Leukocyte Esterase Negative (NEG) 10/30/17 05:05 Urine RBC <5 /HPF (NONE SEEN) 10/30/17 05:05 Urine WBC <5 /HPF (<5) 10/30/17 05:05 Ur Squamous Epith Cells 5-10 /HPF (NONE SEEN) H 10/30/17 05:05 Urine Bacteria <20 /HPF (<20) 10/30/17 05:05 Urine Culture Reflexed Not needed 10/30/17 05:05 Urine Glucose Trace (NEG) 10/30/17 05:05 Urine Total Protein Negative (NEG) 10/30/17 05:05 Weight: 126 lb Wound Present: Yes Closed Surgical Incision Present: Yes Negative Pressure Wound Therapy Present: No Physician Update: Her glucose is elevated 180 to 200s. Added glipizide 2.5 mg daily yesterday. Will increase to bid. She is doing fairly well with occupational therapy but is min to max assistance. She is minimum assistance to supervision with speech therapy. She is not able to do stand and pivot transfers and will work with the sliding board. Pain Issues: Tylenol 500mg Q4H PRN. Gabapentin 100mg BID Functional Improvement: pt demonstrates progress with functional mobility with use of slide board. At this time, pt will be trained with slide board for transfers rather than stand-pivot transfers using a RW for safety. pt demosntrates ability to effectively perform technique and further training will enhance her independence. Functional Improvement Occupational Therapy: CONTINUES TO BENEFIT FROM FURTHER OT TO ADDRESS SAFETY WITH ALL ADL TASKS AND FUNCTIONAL TRF. Speech Therapy Update: Patient with mild to moderate cognitive impairment and start of care. Good gains made already. Memory improved with use of compensatory strategies - MIN A. Problem solving also at PACO. Mild word retrieval difficulty present. Receptive/expressive language and MIN A Summary: Patient's care plan and jail goals have been reviewed and revised as necessary. Please see the Rehabilitation Signature page for all necessary signatures.
[2017-11-01] MEDS: FERROUS SULFATE 325 MG TAB PO SCH (16:56)
[2017-11-01] MEDS: CLOPIDOGREL 75 MG TABLET PO SCH (16:56)
[2017-11-01] MEDS: glipiZIDE 5 MG TAB PO SCH (17:01)
[2017-11-01] MEDS: TELMISARTAN PO SCH (17:02)
[2017-11-01] MEDS: HYDROCHLOROTHIAZIDE PO SCH (17:02)
[2017-11-01] MEDS: SUPER B COMPLEX PO SCH (17:31)
[2017-11-01] MEDS: GABAPENTIN 300 MG CAP PO SCH (20:41)
[2017-11-01] MEDS ORDERED: INSULIN -REGULAR HUMAN 50 UNIT/0.5 ML ML ONE (21:23)
[2017-11-02] MEDS: INSULIN -REGULAR HUMAN 50 UNIT/0.5 ML ML SQ SCH ×4 (07:30→21:13)
[2017-11-02] MEDS: ENOXAPARIN 40 MG/0.4 ML SQ SCH (07:34)
[2017-11-02] MEDS: LIDOCAINE 5% PATCH TOP SCH (07:34)
[2017-11-02] MEDS: glipiZIDE 5 MG TAB PO SCH ×2 (08:30→16:34)
[2017-11-02] MEDS: ACETAMINOPHEN 500 MG TAB PO PRN (08:35)
[2017-11-02] MEDS: GABAPENTIN 300 MG CAP PO SCH ×2 (08:36→19:54)
[2017-11-02] MEDS: VITAMIN D 1000 UNIT TAB PO SCH (08:36)
[2017-11-02] MEDS: SITAGLIPTIN PHOS 100 MG TAB PO SCH (08:36)
[2017-11-02] MEDS: PROMOD 30 ML DOSE PO SCH ×2 (08:37→19:55)
[2017-11-02] MEDS: FERROUS SULFATE 325 MG TAB PO SCH (16:34)
[2017-11-02] MEDS: CLOPIDOGREL 75 MG TABLET PO SCH (16:34)
[2017-11-02] MEDS: SUPER B COMPLEX PO SCH (17:30)
[2017-11-03] MEDS: ENOXAPARIN 40 MG/0.4 ML SQ SCH (07:12)
[2017-11-03] MEDS: LIDOCAINE 5% PATCH TOP SCH (08:00)
[2017-11-03] MEDS: glipiZIDE 5 MG TAB PO SCH ×2 (08:30→16:20)
[2017-11-03] MEDS: INSULIN -REGULAR HUMAN 50 UNIT/0.5 ML ML SQ SCH ×4 (08:30→20:57)
[2017-11-03] MEDS: GABAPENTIN 300 MG CAP PO SCH ×2 (08:42→19:33)
[2017-11-03] MEDS: VITAMIN D 1000 UNIT TAB PO SCH (08:42)
[2017-11-03] MEDS: SITAGLIPTIN PHOS 100 MG TAB PO SCH (08:42)
[2017-11-03] MEDS: ACETAMINOPHEN 500 MG TAB PO PRN ×2 (08:43→17:21)
[2017-11-03] MEDS: PROMOD 30 ML DOSE PO SCH ×2 (08:45→19:33)
[2017-11-03] MEDS: FERROUS SULFATE 325 MG TAB PO SCH (16:20)
[2017-11-03] MEDS: CLOPIDOGREL 75 MG TABLET PO SCH (16:20)
[2017-11-03] MEDS: SUPER B COMPLEX PO SCH (17:30)
[2017-11-04] MEDS: ENOXAPARIN 40 MG/0.4 ML SQ SCH (07:17)
[2017-11-04] MEDS: INSULIN -REGULAR HUMAN 50 UNIT/0.5 ML ML SQ SCH ×4 (07:30→20:46)
[2017-11-04] MEDS: LIDOCAINE 5% PATCH TOP SCH ×2 (08:00→08:25)
[2017-11-04] MEDS: PROMOD 30 ML DOSE PO SCH ×3 (08:00→20:34)
[2017-11-04] MEDS: glipiZIDE 5 MG TAB PO SCH ×2 (08:24→17:21)
[2017-11-04] MEDS: SITAGLIPTIN PHOS 100 MG TAB PO SCH (08:25)
[2017-11-04] MEDS: GABAPENTIN 300 MG CAP PO SCH ×2 (08:25→20:34)
[2017-11-04] MEDS: VITAMIN D 1000 UNIT TAB PO SCH (08:26)
[2017-11-04] MEDS: ACETAMINOPHEN 500 MG TAB PO PRN (08:26)
[2017-11-04] MEDS: HYDROCHLOROTHIAZIDE PO SCH (17:00)
[2017-11-04] MEDS: TELMISARTAN PO SCH (17:00)
[2017-11-04] MEDS: FERROUS SULFATE 325 MG TAB PO SCH (17:21)
[2017-11-04] MEDS: CLOPIDOGREL 75 MG TABLET PO SCH (17:21)
[2017-11-04] MEDS: SUPER B COMPLEX PO SCH (18:42)
--- NOTE | 2017-11-04 20:18 | P.PN ---
Subjective Date of Service: 11/04/17 Subjective: No new changes, No C/O voiced, Tolerating diet, Ambulating, Improving, Working w/ PT, Doing well He self-propelled a wheelchair 260' with standby assistance. Physical Examination - Vital Signs Temperature: 97.8 F Blood Pressure: 132/64 Pulse: 73 Respirations: 16 Pulse Ox (%): 96
[2017-11-04] MEDS ORDERED: INSULIN -REGULAR HUMAN 50 UNIT/0.5 ML ML ONE (20:48)
[2017-11-05] MEDS: ENOXAPARIN 40 MG/0.4 ML SQ SCH (06:58)
[2017-11-05] MEDS: LIDOCAINE 5% PATCH TOP SCH (06:59)
[2017-11-05] MEDS: INSULIN -REGULAR HUMAN 50 UNIT/0.5 ML ML SQ SCH ×4 (07:13→20:54)
[2017-11-05] MEDS: GABAPENTIN 300 MG CAP PO SCH ×2 (08:09→19:46)
[2017-11-05] MEDS: glipiZIDE 5 MG TAB PO SCH ×2 (08:09→17:00)
[2017-11-05] MEDS: VITAMIN D 1000 UNIT TAB PO SCH (08:09)
[2017-11-05] MEDS: SITAGLIPTIN PHOS 100 MG TAB PO SCH (08:09)
[2017-11-05] MEDS: ACETAMINOPHEN 500 MG TAB PO PRN (08:10)
[2017-11-05] MEDS: PROMOD 30 ML DOSE PO SCH ×2 (08:11→19:45)
[2017-11-05] MEDS: CLOPIDOGREL 75 MG TABLET PO SCH (17:00)
[2017-11-05] MEDS: SUPER B COMPLEX PO SCH (17:00)
[2017-11-05] MEDS: FERROUS SULFATE 325 MG TAB PO SCH (17:00)
[2017-11-05] MEDS ORDERED: FORMULATION-R RECTAL 30GM PR PRN (17:22)
--- NOTE | 2017-11-05 17:51 | P.PN ---
Subjective Date of Service: 11/05/17 Subjective: No new changes, Tolerating diet, Ambulating, Working w/ PT, Doing well Ms. De La Torre has no new complaints. She completed speech expression with minimum to moderate assistance. She self-propelled wheelchair 150' with standby assistance. Her annita was slow. Physical Examination - Vital Signs Temperature: 96.7 F Blood Pressure: 122/58 Pulse: 76 Respirations: 16 Pulse Ox (%): 96
[2017-11-05] MEDS ORDERED: INSULIN -REGULAR HUMAN 50 UNIT/0.5 ML ML ONE (20:56)
[2017-11-06] MEDS: INSULIN -REGULAR HUMAN 50 UNIT/0.5 ML ML SQ SCH ×4 (07:30→21:54)
[2017-11-06] MEDS: PROMOD 30 ML DOSE PO SCH ×2 (08:00→22:03)
[2017-11-06] MEDS: ACETAMINOPHEN 500 MG TAB PO PRN (08:25)
[2017-11-06] MEDS: SITAGLIPTIN PHOS 100 MG TAB PO SCH (08:25)
[2017-11-06] MEDS: LIDOCAINE 5% PATCH TOP SCH (08:25)
[2017-11-06] MEDS: VITAMIN D 1000 UNIT TAB PO SCH (08:26)
[2017-11-06] MEDS: ENOXAPARIN 40 MG/0.4 ML SQ SCH (08:26)
[2017-11-06] MEDS: GABAPENTIN 300 MG CAP PO SCH ×2 (08:26→21:54)
[2017-11-06] MEDS: glipiZIDE 5 MG TAB PO SCH ×2 (08:26→16:57)
[2017-11-06] MEDS: SUPER B COMPLEX PO SCH (16:55)
[2017-11-06] MEDS: HYDROCHLOROTHIAZIDE PO SCH (16:56)
[2017-11-06] MEDS: TELMISARTAN PO SCH (16:56)
[2017-11-06] MEDS: CLOPIDOGREL 75 MG TABLET PO SCH (16:57)
[2017-11-06] MEDS: FERROUS SULFATE 325 MG TAB PO SCH (16:57)
[2017-11-06 17:33] LABS: Urine Appearance TURBID; Urine Bilirubin NEGATIVE (NEG); Urine Blood 2+ (NEG); Urine Color YELLOW; Urine Glucose TRACE (NEG); Urine Protein 2+ (NEG); Urine Specific Gravity 1.015 (1.005-1.030); Urine Urobilinogen 0.2 mg/dL (0.2-1.0)
[2017-11-06 18:52] LABS: Urine Bacteria 20-50 /HPF (<20); Urine Culture Reflex Order REFLEXED; Urine Triple Phosphate Crystal MANY (NONE SEEN)
[2017-11-07] MEDS: INSULIN -REGULAR HUMAN 50 UNIT/0.5 ML ML SQ SCH ×4 (07:06→20:24)
[2017-11-07] MEDS: ENOXAPARIN 40 MG/0.4 ML SQ SCH (07:13)
[2017-11-07] MEDS: LIDOCAINE 5% PATCH TOP SCH (07:13)
[2017-11-07] MEDS: GABAPENTIN 300 MG CAP PO SCH ×2 (07:58→19:39)
[2017-11-07] MEDS: SITAGLIPTIN PHOS 100 MG TAB PO SCH (07:58)
[2017-11-07] MEDS: VITAMIN D 1000 UNIT TAB PO SCH (07:58)
[2017-11-07] MEDS: glipiZIDE 5 MG TAB PO SCH ×2 (07:58→16:33)
[2017-11-07] MEDS: ACETAMINOPHEN 500 MG TAB PO PRN (07:58)
[2017-11-07] MEDS: PROMOD 30 ML DOSE PO SCH ×2 (07:59→19:39)
[2017-11-07 15:08] LABS: Absolute Lymphocytes (CBC) 1.6 K/uL (0.7-4.9); Absolute Monocytes 0.8 K/uL (0.1-1.3); Basophils % 1.7 % (0-1.3); Eosinophils % 3.3 % (0-4.4); Hematocrit 33.1 % (36.0-45.0); Lymphocytes % 23.6 % (15.3-44.8); MCH 30.4 pg (27.0-35.0); MCV 91.1 fL (80-100); MPV 7.8 fL (7.6-11.3); RBC Red Blood Cell Count 3.63 M/uL (3.86-4.86)
[2017-11-07 15:26] LABS: Albumin 2.7 g/dL (3.4-5.0); Potassium 4.1 mmol/L (3.5-5.1); Prealbumin 17.7 mg/dL (20-40)
[2017-11-07] MEDS: FERROUS SULFATE 325 MG TAB PO SCH (16:34)
[2017-11-07] MEDS: SUPER B COMPLEX PO SCH (16:34)
[2017-11-07] MEDS: CLOPIDOGREL 75 MG TABLET PO SCH (16:34)
[2017-11-08] MEDS: ENOXAPARIN 40 MG/0.4 ML SQ SCH (06:50)
[2017-11-08] MEDS: INSULIN -REGULAR HUMAN 50 UNIT/0.5 ML ML SQ SCH ×4 (07:30→20:41)
[2017-11-08] MEDS: VITAMIN D 1000 UNIT TAB PO SCH (08:15)
[2017-11-08] MEDS: SITAGLIPTIN PHOS 100 MG TAB PO SCH (08:15)
[2017-11-08] MEDS: LIDOCAINE 5% PATCH TOP SCH (08:15)
[2017-11-08] MEDS: GABAPENTIN 300 MG CAP PO SCH ×2 (08:15→20:00)
[2017-11-08] MEDS: PROMOD 30 ML DOSE PO SCH ×2 (08:16→20:00)
[2017-11-08] MEDS: glipiZIDE 5 MG TAB PO SCH ×2 (08:16→17:16)
[2017-11-08] MEDS: ACETAMINOPHEN 500 MG TAB PO PRN (08:17)
--- NOTE | 2017-11-08 09:49 | P.RH.PN ---
Estimated Length of Stay: 12 Expected Discharge Date: 11/09/17 Discharge Disposition Plan: Home Family Support: Yes Jail Goal: Mobility, Transfers, Self Care Vital Signs: Last Vital Signs Temp 96.8 F 11/08/17 06:15 Pulse 68 11/08/17 06:15 Resp 18 11/08/17 06:15 BP 120/60 11/08/17 06:15 Pulse Ox 96 11/08/17 06:15 Laboratory: Laboratory Last Values WBC 6.7 K/uL (4.3-10.9) D 11/07/17 14:53 RBC 3.63 M/uL (3.86-4.86) L 11/07/17 14:53 Hgb 11.0 g/dL (12.0-15.0) L 11/07/17 14:53 Hct 33.1 % (36.0-45.0) L 11/07/17 14:53 MCV 91.1 fL (80-100) 11/07/17 14:53 MCH 30.4 pg (27.0-35.0) 11/07/17 14:53 MCHC 33.4 g/dL (32.0-36.0) 11/07/17 14:53 RDW 14.3 % (12.1-15.2) 11/07/17 14:53 Plt Count 514 K/uL (152-406) H D 11/07/17 14:53 MPV 7.8 fL (7.6-11.3) 11/07/17 14:53 Neutrophils % 59.4 % (41.7-73.7) 11/07/17 14:53 Lymphocytes % 23.6 % (15.3-44.8) 11/07/17 14:53 Monocytes % 12.0 % (3.3-12.3) 11/07/17 14:53 Eosinophils % 3.3 % (0-4.4) 11/07/17 14:53 Basophils % 1.7 % (0-1.3) H 11/07/17 14:53 Absolute Neutrophils 4.0 K/uL (1.8-8.0) 11/07/17 14:53 Absolute Lymphocytes 1.6 K/uL (0.7-4.9) 11/07/17 14:53 Absolute Monocytes 0.8 K/uL (0.1-1.3) 11/07/17 14:53 Absolute Eosinophils 0.2 K/uL (0-0.5) 11/07/17 14:53 Absolute Basophils 0.1 K/uL (0-0.5) 11/07/17 14:53 Sodium 138 mmol/L (136-145) 11/07/17 14:53 Potassium 4.1 mmol/L (3.5-5.1) 11/07/17 14:53 Chloride 103 mmol/L (98-107) 11/07/17 14:53 Carbon Dioxide 29 mmol/L (21-32) 11/07/17 14:53 BUN 44 mg/dL (7-18) H D 11/07/17 14:53 Creatinine 1.00 mg/dL (0.55-1.3) 11/07/17 14:53 Estimated GFR 53 mL/min (=/>90) L 11/07/17 14:53 Glucose 218 mg/dL (74-106) H 11/07/17 14:53 POC Glucose 141 mg/dl (65-120) H 11/08/17 06:49 Calcium 9.2 mg/dL (8.5-10.1) 11/07/17 14:53 Magnesium 2.0 mg/dL (1.8-2.4) 10/29/17 05:35 Albumin 2.7 g/dL (3.4-5.0) L 11/07/17 14:53 Prealbumin 17.7 mg/dL (20-40) L 11/07/17 14:53 Urine Color Yellow 11/06/17 16:22 Urine Appearance Turbid 11/06/17 16:22 Urine pH 8.0 (5.0-7.0) H 11/06/17 16:22 Ur Specific [place] 1.015 (1.005-1.030) 11/06/17 16:22 Urine Ketones Negative (NEG) 11/06/17 16:22 Urine Blood 2+ (NEG) H 11/06/17 16:22 Urine Nitrite Negative (NEG) 11/06/17 16:22 Urine Bilirubin Negative (NEG) 11/06/17 16:22 Urine Urobilinogen 0.2 mg/dL (0.2-1.0) 11/06/17 16:22 Ur Leukocyte Esterase 3+ (NEG) H 11/06/17 16:22 Urine RBC 10-20 /HPF (NONE SEEN) H 11/06/17 16:22 Urine WBC Loaded /HPF (<5) H 11/06/17 16:22 Ur Squamous Epith Cells <5 /HPF (NONE SEEN) 11/06/17 16:22 Triple Phos Crystals Many (NONE SEEN) H 11/06/17 16:22 Urine Bacteria 20-50 /HPF (<20) H 11/06/17 16:22 Ur Microscopic Review Cancelled 11/06/17 16:22 Urine Culture Reflexed Reflexed 11/06/17 16:22 Urine Glucose Trace (NEG) 11/06/17 16:22 Urine Total Protein 2+ (NEG) H 11/06/17 16:22 Weight: 121 lb 6.4 oz Wound Present: Yes Closed Surgical Incision Present: Yes Negative Pressure Wound Therapy Present: No Physician Update: She has a UTI with proteus mirabilis sensitive to Cipro. Will treat with Cipro 500 mg bid for 7 days. She is doing well with ADL using her sliding board but requires minimum assistance. Mobilizing well with wheelchair. She is nonweight bearing on the left BKA stump. She will be discharged home in the AM with home health via [place]. Pain Issues: Tylenol 500mg Q4H PRN. Gabapentin 600mg BID Functional Improvement: Patient is progressing well toward goals. Patient completed a car transfer via slide board, and is continuing to improve WC mobs. Functional Improvement Occupational Therapy: Cont to address pt's safety awareness and educate pt on energy conservation techniques for LB dressing tasks and using the sliding board for safe transfers. cont to increase pt's UB strength for adl and for functional transfers. Cont with the POC and the goals by the supervising OTR. Speech Therapy Update: Cognitive decline noted from earlier last week; MOD A required for memory and Problem Solving ( was MIN A). Comprehension and Verbal expression at MIN A Level. Testing underway for possible UTI. 24 hour supervision recommended for safety Summary: Patient's care plan and terminal gauger goals have been reviewed and revised as necessary. Please see the Rehabilitation Signature page for all necessary signatures.
[2017-11-08] MEDS ORDERED: DOCUSATE NA/SENNA CONC 1 TAB PO PRN (10:11)
[2017-11-08] MEDS: CIPROFLOXACIN HCL 500 MG TAB PO SCH ×2 (12:23→20:00)
[2017-11-08] MEDS: HYDROCHLOROTHIAZIDE PO SCH (17:00)
[2017-11-08] MEDS: TELMISARTAN PO SCH (17:00)
[2017-11-08] MEDS: FERROUS SULFATE 325 MG TAB PO SCH (17:15)
[2017-11-08] MEDS: CLOPIDOGREL 75 MG TABLET PO SCH (17:15)
[2017-11-08] MEDS: SUPER B COMPLEX PO SCH (17:18)
[2017-11-08] MEDS ORDERED: DOCUSATE NA/SENNA CONC 1 TAB PO SCH (21:00)
[2017-11-09 06:56] VITALS: BP 131/63; TEMP 97.2
[2017-11-09] MEDS: ENOXAPARIN 40 MG/0.4 ML SQ SCH (07:01)
[2017-11-09] MEDS: LIDOCAINE 5% PATCH TOP SCH (07:01)
[2017-11-09] MEDS: INSULIN -REGULAR HUMAN 50 UNIT/0.5 ML ML SQ SCH ×2 (07:30→12:17)
[2017-11-09] MEDS: ACETAMINOPHEN 500 MG TAB PO PRN (08:34)
[2017-11-09] MEDS: glipiZIDE 5 MG TAB PO SCH (08:35)
[2017-11-09] MEDS: SITAGLIPTIN PHOS 100 MG TAB PO SCH (08:35)
[2017-11-09] MEDS: VITAMIN D 1000 UNIT TAB PO SCH (08:36)
[2017-11-09] MEDS: GABAPENTIN 300 MG CAP PO SCH (08:36)
[2017-11-09] MEDS: CIPROFLOXACIN HCL 500 MG TAB PO SCH (08:36)
[2017-11-09] MEDS: PROMOD 30 ML DOSE PO SCH (08:37)
== END 2017-11-09 13:15 | disposition home health service (06) | DRG 74 ==
LOC: 5TH 10-28 15:16
PROVIDERS: ADMIT Psychiatry & Neurology Neurology with Special Qualifications in Child Neurology; ATTEND Psychiatry & Neurology Neurology with Special Qualifications in Child Neurology
DX: E11.40 Type 2 diabetes mellitus with diabetic neuropathy, unspecified (principal); I10 Essential (primary) hypertension; Z89.512 Acquired absence of left leg below knee
CPT/HCPCS: 36415; 80048; 81001; 82040; 82962; 83735; 84134; 85025; 87077; 87086; 87088; 87186; 97542; J1650

== ENCOUNTER 2020-02-28 17:05 | Emergency (ER) | payer OTHER ==
--- OUTSIDE RECORDS SUMMARY | 2020-02-28 17:07 | XMS REPORT | Clinical Summary ---
:1935 Author Organization [facility] Address [address] [place] [address] Care Team Providers Name Role Phone MD Rosalia Primary Care Provider Allergies No Known Active Allergies Medications Medication Sig Dispensed Refills Start Date End Date Status telmisartan-hydrochlor Take 0.5 tablets 0 Active othiazid (MICARDIS by mouth daily as HCT) 40-12.5 mg per needed (at bedtime tablet if SBP>130). atorvastatin (LIPITOR) Take 40 mg by 0 Active 40 MG tablet mouth nightly. insulin GLARGINE Inject 10 Units 0 Active (LANTUS) 100 unit/mL under the skin injection (vial) nightly. thyroid, pork, (SLEEVE SEWER Take 90 mg by 0 Active THYROID) 30 mg tablet mouth daily before breakfast. sitaGLIPtin (JANUVIA) Take 100 mg by 0 Active 100 MG tablet mouth daily with breakfast. progesterone Take 100 mg by 0 Ac tive (PROMETRIUM) 100 MG mouth nightly. capsule pantoprazole Take 40 mg by 0 Act lupe (PROTONIX) 40 MG EC mouth daily before tablet lunch. estradiol (ESTRACE) Take 0.5 mg by 0 Active 0.5 MG tablet mouth daily with lunch. insulin lispro Inject 3-10 Units 0 Active (HumaLOG) 100 unit/mL under the skin 3 injection (three) times a day before meals. SLIDING SCALE if BG < 200 no inuslin, IF BG = 201 - 250 = 3 units, 251 - 300 = 6 units, 301 - 350 = 8 units, BG > 350 = 10 units eqfdy-vr-6-dha-epa-stan Take 1 capsule by 0 Active spho-ast (MEGARED mouth 2 (two) OMEGA-3 KRILL OIL) times a day. [id number] mg capsule zinc gluconate 50 mg Take 50 mg by 0 Active tablet mouth 3 (three) times a week. Take Saturday, Saturday & Saturday magnesium chloride Take 173 tablets 0 Active (SLOW-MAG) 71.5 mg by mouth daily tablet,delayed release with lunch. (DR/EC) alpha lipoic acid 200 Take 200 mg by 0 Active mg capsule mouth nightly. folic acid-B complex,C Take 1 tablet by 0 Active no.17 5 mg tablet mouth nightly. Active Problems Problem Noted Date PVD (peripheral vascular disease) 10/23/2016 Acute GI bleeding 10/22/2016 GI bleed 10/22/2016 Hx of right BKA 07/21/2016 Postoperative wound infection 07/13/2016 Wound dehiscence 07/04/2016 Wound infection after surgery 07/02/2016 Hyperlipidemia 06/18/2016 Cellulitis of leg, right 06/14/2016 PVD (peripheral vascular disease) 05/23/2016 DM (diabetes mellitus) 05/23/2016 Ischemic pain of right foot 05/21/2016 Immunizations Name Administration Dates Next Due Pneumococcal Conjugate 13-Valent 07/06/2016 () Surgical History Surgery Date Site/Laterality Comments REPLACEMENT TOTAL KNEE Bilateral BILATERAL SHOULDER SURGERY Right CHOLECYSTECTOMY FRACTURE SURGERY HYSTERECTOMY CREATION, BYPASS, ARTERIAL, 05/24/2016 Right Proc edure: RIGHT FEMORAL TO FEMORAL TO TIBIAL, USING GRAFT T IBIAL BYPASS W/CADAVER GRAFT; Surgeon: Siva Thakur MD; Loc ation: [facility] OR; Service: [facility]; Laterality: Righ t; Medical devices from this surgery are in t he Implants section. EXCISION, MASS Groin/Right Procedure: RIGHT GROIN 7 IRRIGATION AND D EBRIDEMENT WITH 4X4S SPONGE S X 2 SOAKED IN SALINE, WOUND LEFT OPEN AND ISLAND DRESS ING; Surgeon: Siva Thakur MD; Location: [facility] OR; Service: Vascula r; Laterality: Rig t; AMPUTATION, ABOVE KNEE Thigh/Right Procedure : AMPUTATION KNEE 7 BELOW ; Surgeon : Siva Thakur MD; Loc ation: [facility] OR; Service: [facility]; Laterality: Rig t; ESOPHAGOGASTRODUODENOSCOPY 10/23/2016 Esophagus/Lateral Pro cedure: (EGD) ESOPHAGOGASTRODU ODENOSCOPY (EGD); Surgeon: Surya Infante MD; Location: [facility] ENDOSCOPY; Service: Gastroenterology ; Laterality: Late ral; COLONOSCOPY 10/23/2016 N/A Procedure: COLON OSCOPY; Surgeon: Surya Infante MD; Location: [facility] ENDOSCOPY; Service: Gastroenterology ; Laterality: N/A; Medical History Medical History Date Comments Diabetes (HCC) Hyperlipidemia PVD (peripheral vascular disease) (HCC) Hypertension Arthritis Family History Medical History Relation Name Comments Diabetes Daughter Diabetes Father Diabetes Mother Relation Name Status Comments Daughter Father Mother Social History Tobacco Use Types Packs/Day Years Used Date Current Every Day Smoker Cigarettes 66 Alcohol Use Drinks/Week oz/Week Comments No Sex Assigned at Date Recorded Not on file Last Filed Vital Signs Not on file Plan of Treatment Health Maintenance Due Date Last Done Comments SHINGLES VACCINES (#1) 12/22/1985 65+ PNEUMOCOCCAL VACCINE (1 of - PPSV23) 12/22/2000 INFLUENZA VACCINE 10/24/2019 Implants Implanted Type Area Professional Tutor Device Shelf Model / Identifier Expiration Serial / Date Lot Graft Surgcl Cryovein Sphnos Vein 80cm 3-6mm - [id number] - [id number] Cardiovascular Right: [employer] 10/25/2025 [id number] / Implanted: Qty: 1 on 05/24/2016 by Siva Thakur MD at [facility] Implants Leg [id number] / Patch Vasclr Perph 0.8x8cm Vascu-Guard - [id number] Vascular Graft R ight: BREWER 08/15/2020 [id number] / Implanted: 05/24/[address] [facility] (Quantity not on file) Artery, BIOSCIENCE [id number] / Femoral [id number] Results Not on fileafter 02/27/2019 Advance Directives For more information, please contact: [phone] Type Date Recorded Patient Case Advocate Explanati on Advance Directives, Living Will 07/13/2016 9:10 PM and Medical Power of Dress Finisher Code Status Date Activated Date Inactivated Comments Full Code 07/14/2016 12:59 AM 07/23/2016 9:47 PM Code Status decision reached by: Patient Full Code 07/03/2016 12:11 AM 07/06/2016 1:53 PM Code Status decision reached by: Patient
[2020-02-28 20:01] LABS: Absolute Lymphocytes (CBC) 2.4 K/uL (0.7-4.9); Hematocrit 42.4 % (36.0-45.0); Lymphocytes % 18.8 % (15.3-44.8); MPV 8.6 fL (7.6-11.3); RBC Red Blood Cell Count 4.88 M/uL (3.86-4.86)
[2020-02-28 20:21] LABS: Albumin 3.2 g/dL (3.4-5.0); Bilirubin Total 0.6 mg/dL (0.2-1.0); Potassium 3.7 mmol/L (3.5-5.1); Protein, Total 7.2 g/dL (6.4-8.2)
--- NOTE | 2020-02-28 20:42 | EDPHYS ---
Physician Documentation [facility] Name: Fide De La Torre Age: 84 yrs Sex: Female : 1935 Arrival Date: 02/28/2020 Time: 17:10 Bed 23 Private MD: ED Physician Joey Mckinnon HPI: 02/28 03:51 This 84 yrs old Female presents to ER via Wheelchair with complaints of L- tw4 Arm Pain/Swelling, High Blood Pressure. 03:51 The patient or guardian complains of swelling. The complaints affect the left bicep and tw4 dorsal aspect of left forearm. Onset: The symptoms/episode began/occurred today. Modifying factors: The symptoms are alleviated by nothing. the symptoms are aggravated by. Associated signs and symptoms: Pertinent positives: pain. Severity of symptoms: At their worst the symptoms were moderate, in the emergency department the symptoms are unchanged. The patient has not experienced similar symptoms in the past. Historical: - Allergies: 02/27 17:31 Morphine; ca1 - PMHx: 17:31 Diabetes - NIDDM; Diabetes - IDDM; Hypertension; High Cholesterol; ca1 - PSHx: 17:31 Leo. amputation, BKA; Cholecystectomy; Bladder suspension; Hysterectomy; ca1 17:32 Stents in the abdomen for the legs; ca1 - Immunization history:: Adult Immunizations up to date, Flu vaccine is not up to date. - Social history:: Smoking status: Patient/guardian denies using tobacco, the patient reports quitting approximately 2 years ago. ROS: 02/28 03:51 Constitutional: Negative for fever, chills, and weight loss, Eyes: Negative for injury, tw4 pain, redness, and discharge, Cardiovascular: Negative for chest pain, palpitations, and edema, Respiratory: Negative for shortness of breath, cough, wheezing, and pleuritic chest pain, Abdomen/GI: Negative for abdominal pain, nausea, vomiting, diarrhea, and constipation, Back: Negative for injury and pain. MS/extremity: Positive for pain, swelling, tenderness. Exam: 03:51 Constitutional: This is a well developed, well nourished patient who is awake, alert, tw4 and in no acute distress. Head/Face: Normocephalic, atraumatic. Chest/axilla: Normal chest wall appearance and motion. Nontender with no deformity. No lesions are appreciated. Cardiovascular: Regular rate and rhythm with a normal S1 and S2. No gallops, murmurs, or rubs. Normal PMI, no JVD. No pulse deficits. Respiratory: Lungs have equal breath sounds bilaterally, clear to auscultation and percussion. No rales, rhonchi or wheezes noted. No increased work of breathing, no retractions or nasal flaring. Abdomen/GI: Soft, non-tender, with normal bowel sounds. No distension or tympany. No guarding or rebound. No evidence of tenderness throughout. Neuro: Awake and alert, GCS 15, oriented to person, place, time, and situation. Cranial nerves II-XII grossly intact. Motor strength 5/5 in all extremities. Sensory grossly intact. Cerebellar exam normal. Normal gait. 03:51 Musculoskeletal/extremity: Extremities: noted in the left bicep and left hand: pain, ROM: no acute changes, Circulation is intact in all extremities. Vital Signs: 02/27 17:25 BP 154 / 61; Pulse 78; Resp 18 S; Temp 97.4(TE); Pulse Ox 95% on R/A; ca1 20:30 BP 136 / 85; Pulse 79; Resp 16; Pulse Ox 98% ; rr5 21:50 BP 145 / 80; Pulse 70; Resp 16; Pulse Ox 99% ; rr5 MDM: 19:13 Patient medically screened. tw4 02/28 03:51 Differential diagnosis: dislocation, open fracture, closed fracture, contusion. Data tw4 reviewed: vital signs, nurses notes, radiologic studies, ultrasound. Data interpreted: Pulse oximetry: Interpretation: normal. Counseling: I had a detailed discussion with the patient and/or guardian regarding: the historical points, exam findings, and any diagnostic results supporting the discharge/admit diagnosis, radiology results. Special discussion: I discussed with the patient/guardian in detail that at this point there is no indication for admission to the hospital. It is understood, however, that if the symptoms persist or worsen the patient needs to return immediately for re-evaluation. 02/27 19:27 Order name: CBC with Diff; Complete Time: 20:43 tw4 02/27 20:43 Interpretation: Normal except: WBC 12.8; RBC 4.88; MCV 87.0; NEUT A 8.5; MNA 1.6. tw4 02/27 19:27 Order name: CMP; Complete Time: 20:43 tw4 02/27 20:43 Interpretation: Normal except: GLUC 178; BUN 21; GFR 77. tw4 02/27 19:27 Order name: D-Dimer; Complete Time: 20:43 tw4 02/27 20:44 Interpretation: Normal except: D-DIMER 1422. tw4 02/27 19:27 Order name: Extremity Venous [facility] tw4 Administered Medications: No medications were administered Disposition: 02/28/20 20:41 Discharged to Home. Impression: PERIPHERAL EDEMA, Cellulitis of left upper limb. - Condition is Stable. - Discharge Instructions: Cellulitis, Adult, Peripheral Edema. - Prescriptions for Cleocin 300 mg Oral Capsule - take 1 capsule by ORAL route every 6 hours for 10 days; 40 capsule. - Medication Reconciliation Form, Thank You Letter, Antibiotic Education, Prescription Opioid Use form. - Follow up: Private Physician; When: Upon discharge from the Emergency Department; Reason: Recheck today's complaints, Continuance of care, Re-evaluation by your physician. - Problem is new. - Symptoms have improved. Signatures: Dispatcher [employer] EDMI Joey Mckinnon MD MD tw4 Rafiq Portillo RN RN rr5 Rachel Garcia RN RN ca1 Corrections: (The following items were deleted from the chart) 02/27 21:57 20:41 02/28/2020 20:41 Discharged to Home. Impression: PERIPHERAL EDEMA; Cellulitis of rr5 left upper limb. Condition is Stable. Forms are Medication Reconciliation Form, Thank You Letter, Antibiotic Education, Prescription Opioid Use. Follow up: Private Physician; When: Upon discharge from the Emergency Department; Reason: Recheck today's complaints, Continuance of care, Re-evaluation by your physician. Problem is new. Symptoms have improved. tw4
--- NOTE | 2020-02-28 20:42 | ER ---
Nurse's Notes [facility] Name: Fide De La Torre Age: 84 yrs Sex: Female : 1935 Arrival Date: 02/28/2020 Time: 17:10 Bed 23 Private MD: Diagnosis: PERIPHERAL EDEMA;Cellulitis of left upper limb Presentation: 02/27 17:25 Chief complaint: Patient's son or daughter states: daughter: when she got up this ca1 morning, she said her left arm is hurting her BP is a little elevated. Later that morning, I noticed her L arm is swelling, red and warm to touch. She takes Plavix. Denies Hx of blood clots. Highest BP 171/85. Coronavirus screen: Client denies travel out of the [place] in the last 14 days. At this time, the client does not indicate any symptoms associated with coronavirus-19. Ebola Screen: Patient negative for fever greater than or equal to 101.5 degrees Fahrenheit, and additional compatible Ebola Virus Disease symptoms Patient denies exposure to infectious person. Patient denies travel to an Ebola-affected area in the 21 days before illness onset. No symptoms or risks identified at this time. Initial Sepsis Screen: Does the patient meet any 2 criteria? No. Patient's initial sepsis screen is negative. Does the patient have a suspected source of infection? No. Patient's initial sepsis screen is negative. Risk Assessment: Do you want to hurt yourself or someone else? Patient reports no desire to harm self or others. Onset of symptoms was February 28, 2020. 17:25 Method Of Arrival: Wheelchair ca1 17:25 Acuity: SANGEETHA 3 ca1 Historical: - Allergies: 17:31 Morphine; ca1 - PMHx: 17:31 Diabetes - NIDDM; Diabetes - IDDM; Hypertension; High Cholesterol; ca1 - PSHx: 17:31 Leo. amputation, BKA; Cholecystectomy; Bladder suspension; Hysterectomy; ca1 17:32 Stents in the abdomen for the legs; ca1 - Immunization history:: Adult Immunizations up to date, Flu vaccine is not up to date. - Social history:: Smoking status: Patient/guardian denies using tobacco, the patient reports quitting approximately 2 years ago. Screenin:28 Abuse screen: Denies threats or abuse. Denies injuries from another. Nutritional rr5 screening: No deficits noted. Tuberculosis screening: No symptoms or risk factors identified. Fall Risk IV access (20 points). Gait- Impaired (20 pts.). Total Eagle Fall Scale indicates Low Risk Score (25-44 pts). Fall prevention measures have been instituted. Side Rails Up X 2 Frequent Obs/Assesments occuring Family Present and informed to notify staff if they need to leave bedside As available Patient and Family Educated on Fall Prevention Program and strategies. Assessment: 19:26 General: Appears in no apparent distress. uncomfortable, Behavior is calm, cooperative, rr5 appropriate for age. Pain: Complains of pain in left arm. Neuro: Level of Consciousness is awake, alert, Oriented to person, place, time. Cardiovascular: Capillary refill < 3 seconds Patient's skin is warm and dry. Respiratory: Airway is patent Respiratory effort is even, unlabored, Respiratory pattern is regular, symmetrical. GI: No signs and/or symptoms were reported involving the gastrointestinal system. : No signs and/or symptoms were reported regarding the genitourinary system. EENT: No signs and/or symptoms were reported regarding the EENT system. Derm: Skin is intact, is healthy with good turgor, Skin temperature is warm. Musculoskeletal: Amputation of right leg and left leg. Capillary refill < 3 seconds, Swelling present in left arm Reports swelling left arm. 20:00 Reassessment: Patient appears in no apparent distress at this time. Patient and/or rr5 family updated on plan of care and expected duration. Pain level reassessed. Patient is alert, oriented x 3, equal unlabored respirations, skin warm/dry/pink. awaiting for results. 20:12 Reassessment: d dimer 1422 geno from laboratory called, ED provider aware. rr5 21:00 Reassessment: for discharge awaiting for reassessment by ED provider. rr5 21:50 Reassessment: Patient appears in no apparent distress at this time. Patient is alert, rr5 oriented x 3, equal unlabored respirations, skin warm/dry/pink. discharge instruction given and explained without complaints made. Vital Signs: 17:25 BP 154 / 61; Pulse 78; Resp 18 S; Temp 97.4(TE); Pulse Ox 95% on R/A; ca1 20:30 BP 136 / 85; Pulse 79; Resp 16; Pulse Ox 98% ; rr5 21:50 BP 145 / 80; Pulse 70; Resp 16; Pulse Ox 99% ; rr5 ED Course: 17:10 Patient arrived in ED. ds1 17:28 Triage completed. ca1 17:31 Arm band placed on right wrist. ca1 19:07 Joey Mckinnon MD is Attending Physician. tw4 19:26 Rafiq Portillo, RN is Primary Nurse. rr5 19:29 Patient has correct armband on for positive identification. Bed in low position. Call rr5 light in reach. Side rails up X2. Pulse ox on. NIBP on. 19:47 Inserted saline lock: 20 gauge in right forearm, using aseptic technique. Blood rr5 collected. 20:01 ultrasound extremity at bedside. rr5 21:14 Extremity Venous Uni [facility] US In Process Unspecified. EDMS 21:14 Ultrasound completed. Patient tolerated well. Notified ED Physician keyur. sg3 21:55 No provider procedures requiring assistance completed. IV discontinued, intact, rr5 bleeding controlled, No redness/swelling at site. Pressure dressing applied. Administered Medications: No medications were administered Outcome: 20:41 Discharge ordered by . tw4 21:55 Discharged to home via wheelchair, with family. rr5 21:55 Condition: stable 21:55 Discharge instructions given to patient, family, Instructed on discharge instructions, follow up and referral plans. medication usage, Demonstrated understanding of instructions, follow-up care, medications, Prescriptions given X 1. 21:57 Patient left the ED. rr5 Signatures: Dispatcher [employer] [facility] Jaja Salazar ds1 Delaney Sheffield sg3 Joey Mckinnon MD MD tw4 Rafiq Portillo, SHANAE RN rr5 Rachel Garcia RN RN ca1 Corrections: (The following items were deleted from the chart) 19:29 19:26 Musculoskeletal: Capillary refill < 3 seconds, Swelling present in left arm rr5 Reports swelling left arm rr5
--- NOTE | 2020-02-28 21:25 | RAD REPORT ---
EXAM DESCRIPTION: US - Extremity Venous [facility] - 02/28/2020 9:13 pm CLINICAL HISTORY: SWELLING Arm swelling COMPARISON: No comparisons FINDINGS: Left upper extremity venous system was interrogated with Doppler technique. Normal flow, c ompressibility and augmentation was noted. There is no DVT present. IMPRESSION: No evidence of left upper extremity deep venous thrombosis.
[2020-03-03 15:33] VITALS: BP 154/61; TEMP 97.4; O2SAT 95
== END 2020-02-28 21:57 | disposition home or self-care (01) ==
LOC: ER 17:05
DX: L03.114 Cellulitis of left upper limb (principal); R60.9 Edema, unspecified; I10 Essential (primary) hypertension; Z88.5 Allergy status to narcotic agent; Z89.512 Acquired absence of left leg below knee; Z89.511 Acquired absence of right leg below knee
CPT/HCPCS: 36415; 80053; 85025; 85379; 93971; 99284

== ENCOUNTER 2022-04-11 00:48 | Emergency (ER) | payer OTHER ==
--- OUTSIDE RECORDS SUMMARY | 2022-04-11 00:51 | XMS REPORT | Continuity of Care Document ---
:1935 Author Organization [facility] t Address [address] [place] [address] [address]. [address] [place] [address] Care Team Providers Name Role Phone Rosalia EMANUEL, Alistair Primary Care Physician [phone] IHDE_G Attending Clinician Unavailable ANNA MOHR Attending Clinician Unavailable IHDE_G Admitting Clinician Unavailable ANNA MOHR Admitting Clinician Unavailable Payers Payer Name Policy Type Policy Number Effective Date Expiration Date Vika brar [facility] [id number] FORMERLY NAMED [facility] [id number] - PRIME () Problems Condition Condition Condition Status Onset Resolution Last Treating Co mments Source Name Details Category Date Date Treatment Clinician Date PVD PVD Disease Recurre [facility] (periphera (periphera nce 8 st l vascular l vascular 00:00: Ho spita disease) disease) 00 l Acute GI Acute GI Disease Active [facility] di bleeding bleeding 10-22 00:00: Hospita 00 l GI bleed GI bleed Disease Active Metho di 10-22 00:00: Hospita 00 l Hx of Hx of Disease Recurre [facility] right BKA right BKA nce 07-21 st 00:00: Hospita 00 l Postoperat Postoperat Disease Active M ethodi lupe wound lupe wound 4- st infection infection 00:00: Hosp wily 00 l Wound Wound Disease Active [facility] dehiscence dehiscence 4- st 00:00: Hospita 00 l Wound Wound Disease Active [facility] infection infection 4-10 st after after 00:00: Hospita surgery surgery 00 l Hyperlipid Hyperlipid Disease Recurre [facility]i emia emia nce 06-18 st 00:00: Hospita 00 l Cellulitis Cellulitis Disease Active M ethodi of leg, of leg, 06-14 st right right 00:00: Hospita 00 l PVD PVD Disease Active Methodi (periphera (periphera 05-23 st l vascular l vascular 00:00: Ho spita disease) disease) 00 l DM DM Disease Recurre [facility] (diabetes (diabetes nce 05-23 st mellitus) mellitus) 00:00: Hosp wily 00 l Ischemic Ischemic Disease Active Metho di pain of pain of 05-21 st right foot right foot 00:00: Ho spita 00 l Allergies, Adverse Reactions, Alerts This patient has no known allergies or adverse reactions. Family History Family Member Diagnosis Comments Start Date Stop Date Source Natural mother Diabetes [facility] Natural daughter Diabetes [facility] Natural father Diabetes [facility] Social History Social Habit Start Date Stop Date Quantity Comments Source History of Smokes tobacco [facility] tobacco use daily Hospital Alcohol intake 2016-10-24 2016-10-24 Current [facility] 00:00:00 00:00:00 non-drinker of Hospital alcohol (finding) Sex Ass[birth year] At [birth year] [facility] 00:00:00 00:00:00 Hospital Smoking Status Start Date Stop Date Source Smokes tobacco daily 2016-05-21 00:00:00 [facility] Medications Ordered Filled Start Stop Current Ordering Indication Dosage Frequency Signature Comments Components Source Medication Medication Date Date Medication? Clinician (SIG) Name Name telmisartan Yes .5{tbl} Q24H Take 0.5 Methodi -hydrochlor 9-[address] othiazid 10:44: mouth Hospita (MICARDIS 17 daily as l HCT) needed (at 40-12.5 mg bedtime if per tablet SBP>130). atorvastati Yes 40mg QD Take 40 mg Methodi n (LIPITOR) 9-[address] 40 MG 10:44: nightly. Hospita tablet 17 l insulin Yes 10U QD Inject 10 Metho di GLARGINE 9-[address] (LANTUS) 10:44: under the Hosp wily 100 unit/mL 17 skin l injection nightly. (vial) thyroid, Yes 90mg QD Take 90 mg Met hodi pork, (CONVEYANCER 12-[address] THYROID) 30 10:44: daily Hospi ta mg tablet 17 before l breakfast. sitaGLIPtin Yes 100mg QD Take 100 M ethodi (JANUVIA) 9-[address] 100 MG 10:44: mouth Hospita tablet 17 daily with l breakfast. progesteron Yes 100mg QD Take 100 M ethodi e 9-[address] (PROMETRIUM 10:44: mouth Hospi ta ) 100 MG 17 nightly. l capsule pantoprazol Yes 40mg QD Take 40 mg Methodi e - by mouth st (PROTONIX) 10:44: daily Hospit a 40 MG EC 17 before l tablet lunch. estradiol Yes .5mg QD Take 0.5 Meth nacho (ESTRACE) -[address] 0.5 MG 10:44: mouth Hospita tablet 17 daily with l lunch. insulin Yes 3U [id number] Inject Me thodi lispro 12-21 [id number] 3-10 Units s t (HumaLOG) 10:44: 3D under the Hos mick 100 unit/mL 17 skin 3 l injection (three) times a day before meals. SLIDING SCALE if BG < 200 no inuslin, IF BG = 201 - 250 = 3 units, 251 - 300 = 6 units, 301 - 350 = 8 units, BG > 350 = 10 units krill-om-3- Yes 1{capsu Q.5D Take 1 M ethodi dha-epa-stan 12-21 le} capsule by st spho-ast 10:44: mouth 2 Hospit a (MEGARED 17 (two) l OMEGA-3 times a KRILL OIL) day. 500-115-30- 64 mg capsule zinc Yes 50mg Q.[id number] Take 50 mg M ethodi gluconate 12-21 [id number] mouth [address] 50 mg 10:44: 3W (three) Hospita tablet 17 times a l week. Take Saturday, Saturday & Saturday magnesium 2016- Yes 173{tbl QD Take 173 M ethodi chloride 12-21 } tablets by st (SLOW-MAG) 10:44: mouth Hospit a 71.5 mg 17 daily with l tablet,forest lunch. yed release (DR/EC) alpha 2016- Yes 200mg QD Take 200 Methodi lipoic acid 9-[address] 200 mg 10:44: mouth Hospita capsule 17 nightly. l folic 2017 Yes 1{tbl} QD Take 1 Methodi acid-B 9-[address] complex,C 10:44: mouth Hospita no.17 5 mg 17 nightly. l tablet Procedures This patient has no known procedures. Plan of Care Planned Activity Planned Date Details Comments Source Future Scheduled 2022-03-09 COVID-19 VACCINE (#1) [facility] Test 20:18:52 [code = COVID-19 VACCINE (#1)] Future Scheduled 2022-03-09 SHINGLES VACCINES (1 Met [facility] Test 20:18:52 of 2) [code = SHINGLES VACCINES (1 of 2)] Future Scheduled 2022-03-09 65+ PNEUMOCOCCAL [facility] Test 20:18:52 VACCINE (1 - PCV) [code = 65+ PNEUMOCOCCAL VACCINE (1 - PCV)] Future Scheduled 2022-03-09 INFLUENZA VACCINE [facility] Test 20:18:52 [code = INFLUENZA VACCINE] Encounters Start End Encounter Admission Attending Care Care Encounter Source Date/Time Date/Time Type Type Clinicians Facility Department ID 2022-01-16 2022-01-16 Outpatient [id number] [place] 00:00[facility]00 00:00:00 [facility] 2022-01-15 2022-01-15 Outpatient [facility]G [id number] [place] 00:00:00 00:00:00 [facility] 2021-12-28 2021-12-30 Inpatient ER [facility] [id number] [place] 13:47:00 14:55:00 ANNA [id number] Replaced by [facility] Results This patient has no known results.
--- NOTE | 2022-04-11 05:29 | EDPHYS ---
Physician Documentation [facility] Name: Fide De La Torre Age: 86 yrs Sex: Female : 1935 Arrival Date: 04/11/2022 Time: 00:52 Bed 6 Private MD: ED Physician Jad Cadet HPI: 04/11 01:03 This 86 yrs old Unknown Female presents to ER via Unassigned with complaints of Hand rn Injury. 01:03 The patient or guardian reports pain, swelling. The complaints affect the right hand rn diffusely. Onset: The symptoms/episode began/occurred just prior to arrival. Modifying factors: The symptoms are alleviated by nothing, the symptoms are aggravated by nothing. Associated signs and symptoms: Pertinent negatives: fever, numbness distally, tingling distally. Severity of symptoms: At their worst the symptoms were moderate, in the emergency department the symptoms are unchanged. The patient has not experienced similar symptoms in the past. The patient has not recently seen a physician. Patient reports cannot remember how she injured right hand but was getting out of bed and thinks hit hand or caught hand on something. Reports swelling and bruising to base of right thumb. Takes plavix. Did not fall onto ground. No other injury/pain. . Historical: - Allergies: 01:08 Morphine; ll3 - Home Meds: 01:08 Plavix Oral [Active]; Januvia 100 mg oral tab 1 tab once daily [Active]; glipizide 5 mg ll3 Oral tab 1 tab once daily [Active]; Lantus U-100 Insulin 100 unit/mL Sub-Q crtg [Active]; - PMHx: 01:08 Diabetes - IDDM; High Cholesterol; Hypertension; ll3 - Immunization history:: Client reports receiving the 2nd dose of the Covid vaccine. - Social history:: Smoking status: Patient denies any tobacco usage or history of. - Family history:: not pertinent. - Hospitalizations: : No recent hospitalization is reported. ROS: 01:03 Constitutional: Negative for fever, chills, and weight loss, Neck: Negative for injury, rn pain, and swelling, Cardiovascular: Negative for chest pain, palpitations, and edema, MS/Extremity: + swelling and pain to right hand. Skin: + bruising to right hand Neuro: Negative for headache, weakness, numbness, tingling, and seizure. Exam: 01:03 Constitutional: This is a well developed, well nourished patient who is awake, alert, rn and in no acute distress. Head/Face: Normocephalic, atraumatic. MS/ Extremity: Pulses equal, no cyanosis. Neurovascular intact. + swelling and ecchymosis to right hand at base of thumb with painful ROM. No open wounds. No tenderness of other fingers. No tenderness or swelling of right elbow/forearm/wrist. Neuro: Awake and alert, GCS 15 Vital Signs: 01:06 BP 146 / 49; Pulse 80; Resp 18; Temp 97.3(TE); Pulse Ox 94% on R/A; Weight 72.57 kg ll3 (R); Height 4 ft. 11 in. (149.86 cm) (R); 02:44 BP 128 / 64; kd3 02:47 Pulse 82; Pulse Ox 97% on R/A; kd3 01:06 Body Mass Index 32.32 (72.57 kg, 149.86 cm) ll3 MDM: 00:54 Patient medically screened. rn 03:02 Differential diagnosis: dislocation, closed fracture, contusion, hematoma. Data rn reviewed: vital signs, nurses notes, radiologic studies, plain films, and as a result, I will discharge patient. Independent interpretation of the following test(s) in the Emergency Department X-Ray: My interpretation is Xray hand neg for acute dislocation or fracture. Counseling: I had a detailed discussion with the patient and/or guardian regarding: the historical points, exam findings, and any diagnostic results supporting the discharge/admit diagnosis, radiology results, the need for outpatient follow up, to return to the emergency department if symptoms worsen or persist or if there are any questions or concerns that arise at home. Special discussion: I discussed with the patient/guardian in detail that at this point there is no indication for admission to the hospital. It is understood, however, that if the symptoms persist or worsen the patient needs to return immediately for re-evaluation. 04/11 03:06 Order name: Ice pack; Complete Time: 03:15 rn Administered Medications: No medications were administered Disposition Summary: 04/11/22 03:03 Discharge Ordered Location: Home rn Problem: new rn Symptoms: have improved rn Condition: Stable rn Diagnosis - Contusion of right hand rn Followup: rn - With: Private Physician - When: As needed - Reason: Recheck today's complaints, Re-evaluation by your physician Discharge Instructions: - Discharge Summary Sheet rn - Hand Contusion rn Forms: - Medication Reconciliation Form rn - Thank You Letter rn - Antibiotic healthcare administration internship - Prescription Opioid Use rn Signatures: Jad Cadet MD MD rn Loubet, Lynsea, RN RN ll3
--- NOTE | 2022-04-11 05:30 | ER ---
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 Coronavirus screen: Vaccine status: Patient reports receiving the 2nd dose of the covid vaccine. At this time, the client does not indicate any symptoms associated with coronavirus-19. Ebola Screen: No symptoms or risks identified at this time. Initial Sepsis Screen: Does the patient meet any 2 criteria? No. Patient's initial sepsis screen is negative. Does the patient have a suspected source of infection? No. Patient's initial sepsis screen is negative. Risk Assessment: Do you want to hurt yourself or someone else? Patient reports no desire to harm self or others. Onset of symptoms was April 10, 2022 at 04:00. 01:06 Method Of Arrival: Wheelchair ll3 01:06 Acuity: SANGEETHA 3 ll3 Triage Assessment: 01:17 General: Appears in no apparent distress. Behavior is calm, cooperative. Pain: kd3 Complains of pain in right hand. Neuro: Level of Consciousness is awake, alert, obeys commands, Oriented to person, place, time, situation, Respiratory: Airway is patent Trachea midline Respiratory effort is even, unlabored, Respiratory pattern is regular, symmetrical. Historical: - Allergies: 01:08 Morphine; ll3 - Home Meds: :08 Plavix Oral [Active]; Januvia 100 mg oral tab 1 tab once daily [Active]; glipizide 5 mg ll3 Oral tab 1 tab once daily [Active]; Lantus U-100 Insulin 100 unit/mL Sub-Q crtg [Active]; - PMHx: 01:08 Diabetes - IDDM; High Cholesterol; Hypertension; ll3 - Immunization history:: Client reports receiving the 2nd dose of the Covid vaccine. - Social history:: Smoking status: Patient denies any tobacco usage or history of. - Family history:: not pertinent. - Hospitalizations: : No recent hospitalization is reported. Screenin:16 [facility] ED Fall Risk Assessment (Adult) History of falling in the last 3 months, kd3 including since admission No falls in past 3 months (0 pts) Confusion or Disorientation No (0 pts) Intoxicated or Sedated No (0 pts) Impaired Gait Yes (1 pt) Mobility Assist Device Used Yes (1 pt) Altered Elimination No (0 pt) Score/Fall Risk Level 0 - 2 = Low Risk. Abuse screen: Denies threats or abuse. Denies injuries from another. Nutritional screening: No deficits noted. Nutritional screening: No deficits noted. Assessment: 02:47 General: Appears in no apparent distress. Behavior is calm, cooperative. Neuro: Level kd3 of Consciousness is awake, alert, obeys commands, Oriented to person, place, time, situation. Cardiovascular: Patient's skin is warm and dry. Respiratory: Airway is patent Trachea midline Respiratory effort is even, unlabored, Respiratory pattern is regular, symmetrical. Vital Signs: 01:06 BP 146 / 49; Pulse 80; Resp 18; Temp 97.3(TE); Pulse Ox 94% on R/A; Weight 72.57 kg ll3 (R); Height 4 ft. 11 in. (149.86 cm) (R); 02:44 BP 128 / 64; kd3 02:47 Pulse 82; Pulse Ox 97% on R/A; kd3 01:06 Body Mass Index 32.32 (72.57 kg, 149.86 cm) ll3 ED Course: 00:52 Patient arrived in ED. ja2 00:54 Jad Cadet MD is Attending Physician. rn 01:00 Sofi Carlisle RN is Primary Nurse. kd3 01:07 Triage completed. ll3 01:08 Arm band placed on Patient placed in an exam room, on a stretcher, on pulse oximetry. ll3 02:47 No provider procedures requiring assistance completed. kd3 Administered Medications: No medications were administered Outcome: 03:03 Discharge ordered by . rn 03:16 Patient left the ED. kd3 Signatures: Jad Cadet MD MD rn Alexander, Jessica ja2 Chris Dominguez, RN RN 3 Sofi Carlisle RN RN 3
[2022-04-11 08:55] VITALS: TEMP 97.3
[2022-04-11 08:56] VITALS: BP 128/64
[2022-04-11 08:57] VITALS: O2SAT 97
--- NOTE | 2022-04-11 11:36 | RAD REPORT ---
EXAM DESCRIPTION: Hand Right 3 View 04/11/2022 2:[address] [employer] CLINICAL HISTORY: 86 years, Female, Pain COMPARISON: None. FINDINGS: 3 X-ray views of the right hand (Frontal, lateral and oblique views) were performed. There is mild diffuse bony osteopenia. No acute bony injuries were demonstrated. There are degenerative ch anges/spur formation DIP PIP joint and metacarpophalangeal joints, carpometacarpal joints especially along the first carpometacarpal, findings correspond to osteoarthritis. There are no gross intraoss eous lesions. No periosteal reaction were seen. IMPRESSION: No acute bony injuries were demonstrated. Osteoarthritis. Electronically signed by: Carlos Pang MD 04/11/2022 2:[address] COMMANDER Due to temporary technical issues with the PACS/Fluency reporting system, reports are being signed by the in house radiologists without review as a courtesy to insure prompt reporting. The interpreting radiologist is fully responsible for the content of the report.
== END 2022-04-11 03:16 | disposition home or self-care (01) ==
LOC: ER 00:48
DX: S60.221A Contusion of right hand, initial encounter (principal); I10 Essential (primary) hypertension; E11.9 Type 2 diabetes mellitus without complications; E78.00 Pure hypercholesterolemia, unspecified; Z88.5 Allergy status to narcotic agent; Z79.01 Long term (current) use of anticoagulants; Z79.4 Long term (current) use of insulin
CPT/HCPCS: 99282

== ENCOUNTER 2022-08-04 16:59 | Emergency (ER) | payer OTHER ==
--- OUTSIDE RECORDS SUMMARY | 2022-08-04 17:03 | XMS REPORT | Continuity of Care Document ---
:1935 Author Organization [facility] t Address [address] [place] [address] Care Team Providers Name Role Phone Rosalia EMANUEL, Alistair Primary Care Physician IHDE_G Attending Clinician Unavailable ANNA MOHR Attending Clinician Unavailable IHDE_G Admitting Clinician Unavailable ANNA MOHR Admitting Clinician Unavailable Payers Payer Name Policy Type Policy Number Effective Date Expiration Date Vika brar [facility] [id number] [facility] [id number] - PRIME () Problems Condition Condition Condition [...] Wound Wound Disease Active [facility] de[facility]isc[facility] 00:00: Hospita 00 l Wound Wound [...] Comments Start Date Stop Date Source Natural daughter Diabetes [facility] Natural father Diabetes [facility] mother Diabetes [facility] Social History Social Habit Start Date Stop Date Quantity Comments Source History of tobacco Cigarette Smoker [facility] use Hospital Gender identity [facility] Sexual orientation [facility] ist Hospital Alcohol intake 2016-10-24 2016-10-24 Current Jainism 00:00:00 00:00:00 non-drinker of Hospital alcohol (finding) History of Social 2016-09-10 2016-09-10 [facility] function 00:00:00 00:00:00 Hospital Sex Ass[birth year] At [birth year] Jainism 00:00:00 00:00:00 Hospital Smoking Status Start Date Stop Date Source Smokes tobacco daily 2016-05-21 00:00:00 [facility] Medications Ordered Filled Start Stop Current Ordering [...] 17 skin l injection nightly. (vial) thyroid, 2017 Yes 90mg QD Take 90 mg Met hodi pork, (GRAPHICS COORDINATOR 12-[address] THYROID) 30 10:44: daily Hospi ta mg tablet 17 before l breakfast. sitaGLIPtin 2017 Yes 100mg QD Take 100 M ethodi (JANUVIA) 9-[address] 100 MG 10:44: mouth Hospita tablet 17 daily with l breakfast. progesteron 2017 Yes 100mg QD Take 100 M ethodi e 9-[address] (PROMETRIUM 10:44: mouth Hospi ta ) 100 MG 17 nightly. l capsule pantoprazol Yes 40mg QD Take 40 mg Methodi e - by mouth st (PROTONIX) 10:44: daily Hospit a 40 MG EC 17 before l tablet lunch. estradiol Yes .5mg QD Take 0.5 Meth nacho (ESTRACE) [address] 0.5 MG 10:44: mouth Hospita tablet 17 daily with l lunch. insulin Yes 3U Q.[id number] Inject Me thodi lispro 12-21 [id number] 3-10 Units s t (HumaLOG) 10:44: 3D [...] 500-115-30- 64 mg capsule zinc Yes 50mg Q.[id number] Take 50 mg M ethodi gluconate 12-[id number] 50 mg 10:44: 3W (three) Hospita tablet 17 times a l week. Take Saturday, Saturday & Saturday magnesium 2017-0 Yes 173{tbl QD Take 173 M ethodi chloride 9-29 } tablets by st (SLOW-MAG) 10:44: mouth Hospit a 71.5 mg 17 daily with l tablet,forest lunch. yed release (DR/EC) alpha 2017- Yes 200mg QD Take 200 [facility] lipoic acid 9-[address] 200 mg 10:44: mouth Hospita capsule 17 nightly. l folic 2017-0 Yes 1{tbl} QD Take 1 [facility] acid-B 9-[address] complex,C 10:44: mouth Hospita no.17 5 mg 17 nightly. l tablet telmisartan 2017-0 Yes .5{tbl} Q24H Take 0.5 Methodi -hydrochlor [...] 17 skin l injection nightly. (vial) thyroid, 2017 Yes 90mg QD Take 90 mg Met hodi pork, (GRAPHICS COORDINATOR 9-[address] THYROID) 30 10:44: daily Hospi ta mg tablet 17 before l breakfast. sitaGLIPtin 2017-0 Yes 100mg QD Take 100 M ethodi (JANUVIA) 9-[address] 100 MG 10:44: mouth Hospita tablet 17 daily with l breakfast. progesteron 2017-0 Yes 100mg QD Take 100 M ethodi e 9-[address] (PROMETRIUM 10:44: mouth Hospi ta ) 100 MG 17 nightly. l capsule pantoprazol 2016-0 Yes 40mg QD Take 40 mg Methodi e 9-[address] (PROTONIX) 10:44: daily Hospit a 40 MG EC 17 before l tablet lunch. estradiol 2017-0 Yes .5mg QD Take 0.5 Meth nacho (ESTRACE) 9-[address] 0.5 MG 10:44: mouth Hospita tablet 17 daily with l lunch. insulin Yes 3U Q.[id number] Inject Me thodi lispro 12-21 [id number] 3-10 Units s t (HumaLOG) 10:44: 3D [...] 500-115-30- 64 mg capsule zinc Yes 50mg Q.[id number] Take 50 mg M ethodi gluconate 12-[id number] 50 mg 10:44: 3W (three) Hospita tablet 17 times a l week. Take Saturday, Saturday & Saturday magnesium 2016- Yes 173{tbl QD Take 173 M ethodi chloride -29 } tablets by st (SLOW-MAG) 10:44: mouth Hospit a 71.5 mg 17 daily with l tablet,forest lunch. yed release (DR/EC) alpha Yes 200mg QD Take 200 Methodi lipoic acid 9-[address] 200 mg 10:44: mouth Hospita capsule 17 nightly. l folic Yes 1{tbl} QD Take 1 [facility] acid-B 9-[address] complex,C 10:44: mouth Hospita no.17 5 mg 17 nightly. l tablet Procedures This patient has no known procedures. Plan of Care Planned Activity Planned Date Details Comments Source Future Scheduled 2022-08-04 COVID-19 VACCINE (#1) [facility] Test 17:03:00 [code = COVID-19 VACCINE (#1)] Future Scheduled 2022-08-04 SHINGLES VACCINES (1 Met [facility] Test 17:03:00 of 2) [code = SHINGLES VACCINES (1 of 2)] Future Scheduled 2022-08-04 65+ PNEUMOCOCCAL [facility] Test 17:03:00 VACCINE (1 - PCV) [code = 65+ PNEUMOCOCCAL VACCINE (1 - PCV)] Future Scheduled 2022-08-04 INFLUENZA VACCINE [facility] Test 17:03:00 [code = INFLUENZA VACCINE] Future Scheduled 2022-03-09 COVID-19 VACCINE (#1) [facility] Test 20:18:52 [code = COVID-19 VACCINE (#1)] Future Scheduled 2022-03-09 SHINGLES VACCINES (1 Met [facility] Test 20:18:52 of 2) [code = SHINGLES VACCINES (1 of 2)] Future Scheduled 2022-03-09 65+ [facility] 20:18:52 VACCINE (1 - PCV) [code = 65+ PNEUMOCOCCAL VACCINE (1 - PCV)] Future Scheduled 2022-03-09 INFLUENZA VACCINE Method [facility] Hospital Test 20:18:52 [code = INFLUENZA VACCINE] Encounters Start End Encounter Admission Attending Care Care Encounter Source Date/Time Date/Time Type Type Clinicians Facility Department ID 2022-05-17 2022-05-17 Outpatient [id number] [place] 00:00[facility]00 00:00:00 [id number] 2022-05-04 2022-05-04 Outpatient I[facility]DE_G [id number] [place] 00:00:00 00:00:00 [id number] 2022-01-16 2022-01-16 Outpatient [facility]G [id number] [place] 00:00:00 00:00:00 [id number] 2022-01-15 2022-01-15 Outpatient IHDE_G [facility] [id number] [place] 00:00:00 00:00:00 [id number] 2021-12-28 2021-12-30 Inpatient ER [facility] [id number] [place] 13:47:00 14:55:00 ANNA -[phone] [facility] Results This patient has no known results.
[2022-08-04] MEDS ORDERED: LIDOCAINE 1% 20 ML MDV ONE (17:38)
--- NOTE | 2022-08-04 18:05 | EDPHYS ---
Physician Documentation [facility] Name: Fide De La Torre Age: 86 yrs Sex: Female : 1935 Arrival Date: 08/04/2022 Time: 16:59 Bed 13 Private MD: ED Physician Hollis Dempsey HPI: 08/04 17:24 This 86 yrs old Female presents to ER via Wheelchair with complaints of Wound bs3 Check. 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 Historical: - Allergies: 17:14 Morphine; aa5 - PMHx: 17:14 High Cholesterol; Hypertension; Diabetes mellitus; Wheelchair bound; aa5 - PSHx: 17:14 Leo BKA; aa5 ROS: 17:24 Constitutional: Negative for fever, chills bs3 17:24 All other systems are negative. Exam: 17:24 Constitutional: This is a well developed, well nourished patient who is awake, alert, bs3 and in no acute distress. Head/Face: Normocephalic, atraumatic. Eyes: Pupils equal round and reactive to light, extra-ocular motions intact. Lids and lashes normal. Chest/axilla: Normal chest wall appearance and motion. Nontender with no deformity. No lesions are appreciated. Cardiovascular: Regular rate and rhythm with a normal S1 and S2. symmetric pulses in upper extremities Skin: on the right glutela region, on the upper aspect there is a wound, with mild erythema, there is a small amount of fluctuance. MS/ Extremity: Pulses equal, no cyanosis. Neurovascular intact. Full, normal range of motion. Vital Signs: 17:13 BP 165 / 63; Pulse 81; Resp 16 S; Temp 98.1(O); Pulse Ox 96% on R/A; aa5 Procedures: 18:00 I \T\ D: Incision and drainage was performed for an abscess of the right buttocks Prepped bs3 with Chlorhexidine scrub. Anesthetized with 2 ml's 1% Lidocaine. Incised with #11 blade. Drained small amount purulent fluid. bloody fluid. Dressing: sterile 4x4 gauze, the patient tolerated the procedure well. MDM: 17:11 Patient medically screened. bs3 17:24 Data reviewed: vital signs, nurses notes. ED course: 86-year-old with cellulitis versus bs3 developing abscess we had a shared decision-making conversation we will do a small incision given her diabetes, return rpec given. 18:00 Differential diagnosis: Possible cellulitis versus abscess possible pressure ulcer bs3 although less likely given the induration and history given minimal discharge will cover with antibiotics return precautions given advise follow-up with PCP. Administered Medications: 17:34 Drug: Lidocaine Infiltration (1 %) 10 mg {Note: to bedside.} Volume: 20 ml; Route: kc6 Infiltration; 17:57 Follow up: Response: No adverse reaction; Pain is decreased kc6 Disposition Summary: 08/04/22 18:04 Discharge Ordered Location: Home bs3 Problem: new bs3 Symptoms: have improved bs3 Condition: Stable bs3 Diagnosis - Cellulitis of buttock bs3 Followup: bs3 - With: Private Physician - When: 5 - 6 days - Reason: Re-evaluation by your physician Discharge Instructions: - Discharge Summary Sheet bs3 - Skin Abscess bs3 - Cellulitis, Adult bs3 Forms: - Medication Reconciliation Form bs3 - Thank You Letter bs3 - Antibiotic Education bs3 - Prescription Opioid Use bs3 Prescriptions: - Clindamycin HCl 300 mg Oral Capsule - take 1 capsule by ORAL route every 6 hours for 10 days; 40 capsule; Refills: 0, bs3 Product Selection Permitted Signatures: Rita Raymond RN RN aa5 Kaya Deshpande RN RN kc6 Hollis Dempsey MD MD bs3 Corrections: (The following items were deleted from the chart) 17:15 17:14 PMHx: Diabetes - IDDM; aa5 aa5
--- NOTE | 2022-08-04 18:05 | ER ---
Nurse's Notes [facility] [place] [place] Name: Fide De La Torre Age: 86 yrs Sex: Female : 1935 Arrival Date: 08/04/2022 Time: 16:59 Bed 13 Private MD: Diagnosis: Cellulitis of buttock Presentation: 08/04 17:13 Chief complaint: Pt's daughter states "she started by scratching her butt because it aa5 was itchy and now she has a wound on her right cheek". Pt reports wound to right gluteus cash and reports pain to site x 1 week ago. Coronavirus screen: At this time, the client does not indicate any symptoms associated with coronavirus-19. Ebola Screen: Patient denies travel to an Ebola-affected area in the 21 days before illness onset. Initial Sepsis Screen: Does the patient meet any 2 criteria? No. Patient's initial sepsis screen is negative. Does the patient have a suspected source of infection? Yes:. Risk Assessment: Do you want to hurt yourself or someone else? Patient reports no desire to harm self or others. Onset of symptoms was July 2022. 17:13 Acuity: SANGEETHA 3 aa5 17:13 Method Of Arrival: Wheelchair aa5 Historical: - Allergies: 17:14 Morphine; aa5 - PMHx: 17:14 High Cholesterol; Hypertension; Diabetes mellitus; Wheelchair bound; aa5 - PSHx: 17:14 Leo BKA; aa5 Screenin:35 [facility] ED Fall Risk Assessment (Adult) History of falling in the last 3 months, kc6 including since admission No falls in past 3 months (0 pts) Confusion or Disorientation No (0 pts) Intoxicated or Sedated No (0 pts) Impaired Gait No (0 pts) Mobility Assist Device Used No (0 pt) Altered Elimination No (0 pt) Score/Fall Risk Level 0 - 2 = Low Risk Oriented to surroundings, Maintained a safe environment, Educated pt \\T\\ family on fall prevention, incl call for assistance when getting out of bed, Assessed \\T\\ reinforced patient's understanding of fall precautions, Hourly rounding (assess needs \\T\\ fall precautionary measures) done. Abuse screen: Denies threats or abuse. Denies injuries from another. Nutritional screening: No deficits noted. Tuberculosis screening: No symptoms or risk factors identified. Assessment: 17:34 General: Appears in no apparent distress. uncomfortable, Behavior is calm, cooperative, kc6 appropriate for age. Pain: Complains of pain in buttocks. Neuro: Hernández Agitation-Sedation Scale (RASS): 0 - Alert and Calm Level of Consciousness is awake, alert, obeys commands, Oriented to person, place, time, situation, Appropriate for age. Cardiovascular: Capillary refill < 3 seconds. Respiratory: Airway is patent Trachea midline Respiratory effort is even, unlabored, Respiratory pattern is regular, symmetrical. GI: No signs and/or symptoms were reported involving the gastrointestinal system. : No signs and/or symptoms were reported regarding the genitourinary system. EENT: No signs and/or symptoms were reported regarding the EENT system. Derm: Skin is pink, warm \\T\\ dry. Wound noted gluteal cleft. Musculoskeletal: No signs and/or symptoms reported regarding the musculoskeletal system. Amputation of right leg and left leg. Circulation, motion, and sensation intact. Capillary refill < 3 seconds. Vital Signs: 17:13 BP 165 / 63; Pulse 81; Resp 16 S; Temp 98.1(O); Pulse Ox 96% on R/A; aa5 ED Course: 17:01 Patient arrived in ED. ts1 17:10 Kaya Deshpande, RN is Primary Nurse. kc6 17:12 Hollis Dempsey MD is Attending Physician. bs3 17:13 Arm band placed on. aa5 17:14 Triage completed. aa5 17:35 Patient has correct armband on for positive identification. Bed in low position. Call kc6 light in reach. Side rails up X2. Adult w/ patient. 18:15 No provider procedures requiring assistance completed. Patient did not have IV access kc6 during this emergency room visit. Administered Medications: 17:34 Drug: Lidocaine Infiltration (1 %) 10 mg {Note: to bedside.} Volume: 20 ml; Route: kc6 Infiltration; 17:57 Follow up: Response: No adverse reaction; Pain is decreased kc6 Medication: 18:16 VIS not applicable for this client. kc6 Outcome: 18:04 Discharge ordered by . bs3 18:15 Discharged to home via wheelchair, with family. kc6 18:15 Condition: stable 18:15 Discharge instructions given to patient, Instructed on discharge instructions, follow up and referral plans. medication usage, Demonstrated understanding of instructions, follow-up care, medications, Prescriptions given X 1. 18:16 Patient left the ED. kc6 Signatures: Rita Raymond RN RN aa5 Kaya Desphande RN RN kc6 Hollis Dempsey MD MD bs3 Morena Jimenez PAS PAS ts1 Corrections: (The following items were deleted from the chart) 17:15 17:13 Chief complaint: Pt's daughter states "she started by scratching her butt because aa5 it was itchy and now she has a wound on her right cheek". Pt reports wound to right gluteus cash and reports pain to site. aa5 17:15 17:14 PMHx: Diabetes - IDDM; aa5 aa5 17:51 17:34 Musculoskeletal: No signs and/or symptoms reported regarding the musculoskeletal kc6 system. Circulation, motion, and sensation intact. Capillary refill < 3 seconds, Range of motion: intact in all extremities, kc6
[2022-08-04 18:22] VITALS: BP 165/63; TEMP 98.1; O2SAT 96
== END 2022-08-04 18:16 | disposition home or self-care (01) ==
LOC: ER 16:59
PROC: 0H98XZZ Drainage of Buttock Skin, External Approach (ICD-10-PCS; principal; 2022-08-04)
DX: L03.317 Cellulitis of buttock (principal); Z89.512 Acquired absence of left leg below knee; Z89.511 Acquired absence of right leg below knee; Z88.5 Allergy status to narcotic agent
CPT/HCPCS: 99283; 10060; J2001

== ENCOUNTER 2022-10-20 13:23 | Inpatient (IN) | payer OTHER ==
--- OUTSIDE RECORDS SUMMARY | 2022-10-20 13:26 | XMS REPORT | Continuity of Care Document ---
:[address] [facility] [place], [place] t Address [address]. [address] [place] [address] Care Team Providers Name Role Phone Rosalia EMANUEL, Alistair Primary Care Physician [phone] IHDE_G Attending Clinician Unavailable ANNA MOHR Attending Clinician Unavailable IHDE_G Admitting Clinician Unavailable ANNA MOHR Admitting Clinician Unavailable Payers Payer Name Policy Type Policy Number Effective Date Expiration Date Vika brar [facility] [id number] [facility] [id number] [facility] () Problems Condition Condition Condition Status Onset Resolution Last Treating Co mments Source Name Details Category Date Date Treatment Clinician Date PVD PVD Disease Recurre Methodi (periphera (periphera nce 10-23 st l vascular l vascular 00:00: Ho [...] Active M ethodi lupe wound lupe wound 4 st infection infection 00:00: Hosp wily 00 [...] st right right 00:00: Hospita 00 l DM DM Disease Recurre Methodi (diabetes (diabetes nce 05-23 st mellitus) mellitus) 00:00: Hosp wily 00 l PVD PVD Disease Active Methodi (periphera (periphera 05-23 st l vascular l vascular 00:00: Ho spita disease) disease) 00 l Ischemic Ischemic Disease Active Metho di pain of pain of 05-21 st right foot right foot 00:00: Ho spita 00 l Allergies, Adverse Reactions, Alerts This patient has no known allergies or adverse reactions. Family History Family Member Diagnosis Comments Start Date Stop Date Source Natural daughter Diabetes [facility] Natural father Diabetes [facility] Natural mother Diabetes [facility] Social History Social Habit Start Date Stop Date Quantity Comments Source Gender identity [facility] Sexual orientation [facility] History of tobacco Cigarette Smoker [facility] Alcohol intake 2016-10-24 2016-10-24 Current [facility] 00:00:00 00:00:00 non-drinker of Hospital alcohol (finding) History of Social 2016-09-10 2016-09-10 [facility] function 00:00:00 00:00:00 Hospital Sex Assigned At [birth year] [facility] 00:00:00 00:00:00 Hospital Smoking Status Start Date Stop Date Source Smokes tobacco daily 2016-05-21 00:00:00 [facility] Medications Ordered Filled Start Stop Current Ordering [...] QD Take 90 mg Met hodi pork, (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 estradiol Yes .5mg QD Take 0.5 Meth nacho (ESTRACE) 9-[address] 0.5 MG 10:44: mouth Hospita tablet 17 daily with l lunch. insulin Yes 3U [id number] Inject Me thodi lispro 12-21 [id number] 3-10 Units s t (HumaLOG) 10:44: 3D [...] 500-115-30- 64 mg capsule zinc Yes 50mg [id number] Take 50 mg M ethodi gluconate 12-21 [id number] by mouth 3 st 50 mg 10:44: [...] QD Take 90 mg Met hodi pork, (NAVIGATION OFFICER 9-[address] THYROID) 30 10:44: [...] 100 MG 17 nightly. l capsule pantoprazol 0 Yes 40mg QD Take 40 mg Methodi e 9-[address] (PROTONIX) 10:44: daily Hospit a 40 MG EC 17 before l tablet lunch. estradiol 2017-0 Yes .5mg QD Take 0.5 Meth nacho (ESTRACE) 9-[address] 0.5 MG 10:44: mouth Hospita tablet 17 daily with l lunch. insulin Yes 3U [id number] Inject Me thodi lispro - [id number] 3-10 Units s t (HumaLOG) 10:44: 3D [...] M ethodi dha-epa-stan 12-21 le} capsule by spho-ast 10:44: mouth 2 Hospit a (MEGARED 17 (two) l OMEGA-3 times a KRILL OIL) day. 500-115-30- 64 mg capsule zinc Yes 50mg Q.[id number] Take 50 mg M ethodi gluconate 12-21 [id number] by mouth [address] 50 mg 10:44: 3W (three) Hospita tablet 17 times a l week. Take Saturday, Saturday & Saturday magnesium Yes 173{tbl QD Take 173 M ethodi [...] Source Future Scheduled 2022-08-04 COVID-19 VACCINE (#1) [facility] Test 17:03:00 [code = COVID-19 VACCINE (#1)] Future Scheduled 2022-08-04 SHINGLES VACCINES (1 Met [facility] Test 17:03:00 of 2) [code = SHINGLES VACCINES (1 of 2)] Future Scheduled 2022-08-04 65+ PNEUMOCOCCAL [facility] Test 17:03:00 VACCINE (1 - PCV) [code = 65+ PNEUMOCOCCAL VACCINE (1 - PCV)] Future Scheduled 2022-08-04 INFLUENZA VACCINE [facility] Test 17:03:00 [code = INFLUENZA VACCINE] Future Scheduled 2022-03-09 COVID-19 VACCINE (#1) [facility] Test 20:18:52 [code = COVID-19 VACCINE (#1)] Future Scheduled 2022-03-09 SHINGLES VACCINES (1 Met [facility] Test 20:18:52 of 2) [code = SHINGLES VACCINES (1 of 2)] Future Scheduled 2022-03-09 65+ [facility]CCAL [facility] Test 20:18:52 VACCINE (1 - PCV) [code = 65+ PNEUMOCOCCAL VACCINE (1 - PCV)] Future Scheduled 2022-03-09 INFLUENZA VACCINE Method [facility] Test 20:18:52 [code = INFLUENZA VACCINE] Encounters Start End Encounter Admission Attending Care Care Encounter Source Date/Time Date/Time Type Type Clinicians Facility Department ID 2022-05-17 2022-05-17 Outpatient [id number] [facility] 00:00[facility]00 00:00:00 [id number] 2022-05-04 2022-05-04 Outpatient IHDE_G [id number] [place] 00:00:00 00:00:00 [id number] 2022-01-16 2022-01-16 Outpatient IHDE_G [facility] [id number] [place] 00:00:00 00:00:00 [id number] 2022-01-15 2022-01-15 Outpatient IHDE_G MM[facility] [id number] [place] 00:00:00 00:00:00 [facility] 2021-12-28 2021-12-30 Inpatient ER [facility] [id number] [place] 13:47:00 14:55:00 ANNA -[id number] [facility] Results This patient has no known results.
[2022-10-20] MEDS ORDERED: PANTOPRAZOLE 40 MG INJ ONE (14:16)
[2022-10-20 14:24] LABS: Absolute Lymphocytes (CBC) 1.2 K/uL (0.7-4.9); Hematocrit 32.1 % (36.0-45.0); Lymphocytes % 10.2 % (15.3-44.8); MCV 88.1 fL (80-100); MPV 8.2 fL (7.6-11.3); RBC Red Blood Cell Count 3.65 M/uL (3.86-4.86)
[2022-10-20 14:26] LABS: Protime INR 1.01
[2022-10-20 14:39] LABS: Albumin 2.9 g/dL (3.4-5.0); Bilirubin Total 0.3 mg/dL (0.2-1.0); Potassium 4.2 mEq/L (3.5-5.1); Protein, Total 6.4 g/dL (6.4-8.2)
--- NOTE | 2022-10-20 14:56 | EDPHYS ---
Physician Documentation [facility] Name: Fide De La Torre Age: 86 yrs Sex: Female : 1935 Arrival Date: 10/20/2022 Time: 13:23 Bed 2 Private MD: ED Physician Shilo Yates HPI: 10/20 14:35 This 86 yrs old Female presents to ER via Wheelchair with complaints of Bloody Stools. ms3 14:35 The patient presents to the emergency department. Onset: The symptoms/episode ms3 began/occurred yesterday. Abdominal pain: none is appreciated. Modifying factors: The symptoms are alleviated by nothing, the symptoms are aggravated by nothing. Associated signs and symptoms: The patient has no apparent associated signs or symptoms. Severity of symptoms: At their worst the symptoms were very mild. The patient has experienced a previous episode. Historical: - Allergies: 13:41 Morphine; ll1 - Home Meds: 14:18 glipizide 5 mg Oral tab 1 tab once daily [Active]; Januvia 100 mg Oral tab 1 tab once hb daily [Active]; Lantus U-100 Insulin 100 unit/mL Sub-Q crtg [Active]; Plavix Oral [Active]; - PMHx: 13:41 Diabetes - NIDDM; diabetes mellitus; High Cholesterol; Hypertension; wheelchair bound; ll1 - PSHx: 13:41 Leo BKA; ll1 - Immunization history:: Client reports receiving the 2nd dose of the Covid vaccine. - Social history:: Smoking status: Patient denies any tobacco usage or history of. ROS: 14:35 Constitutional: Negative for fever, and chills. Neck: Negative for injury, pain, and ms3 swelling, Cardiovascular: Negative for chest pain, and palpitations. Respiratory: Negative for shortness of breath, cough, wheezing, and pleuritic chest pain. 14:35 Abdomen/GI: Positive for black/tarry stool. 14:35 All other systems are negative. Exam: 14:35 Constitutional: This is a well developed, well nourished patient who is awake, alert, ms3 and in no acute distress. Head/Face: Normocephalic, atraumatic. Neck: Trachea midline, no cervical lymphadenopathy. Supple, full range of motion without nuchal rigidity, or vertebral point tenderness. No Meningismus. Chest/axilla: Normal chest wall appearance and motion. Nontender with no deformity. Cardiovascular: Regular rate and rhythm with a normal S1 and S2. No gallops, murmurs, or rubs. Normal PMI, no JVD. No pulse deficits. Respiratory: Lungs have equal breath sounds bilaterally, clear to auscultation and percussion. No rales, rhonchi or wheezes noted. No increased work of breathing, no retractions or nasal flaring. Abdomen/GI: Soft, non-tender, with normal bowel sounds. No distension or tympany. No guarding or rebound. No evidence of tenderness throughout. Skin: Warm, dry with normal turgor. Normal color with no rashes, no lesions, and no evidence of cellulitis. MS/ Extremity: Pulses equal, no cyanosis. Neurovascular intact. Full, normal range of motion. Vital Signs: 13:42 BP 130 / 54; Pulse 88; Resp 17; Temp 97.8; Pulse Ox 97% ; Weight 70.31 kg; Height 4 ft. ll1 8 in. ; 16:10 BP 125 / 50; Pulse 86; Resp 15; Pulse Ox 100% on R/A; hb 13:42 Body Mass Index 34.75 (70.31 kg, 142.24 cm) ll1 MDM: 14:00 Patient medically screened. ms3 14:35 Differential diagnosis: gastritis, gastritis vs anemia. ms3 17:13 Data reviewed: vital signs, nurses notes, lab test result(s), radiologic studies, and ms3 as a result, I will admit patient. Consideration of Admission/Observation Patient was admitted/placed on observation. Management of patient was discussed with the following: Hospitalist: Dr Fernandez. I considered the following discharge prescriptions or medication management in the emergency department Medications were administered in the Emergency Department. See MAR. Historians other than the Patient: Daughter/Son: Daughter. Counseling: I had a detailed discussion with the patient and/or guardian regarding: the historical points, exam findings, and any diagnostic results supporting the discharge/admit diagnosis, lab results, the need for further work-up and treatment in the hospital, to return to the emergency department if symptoms worsen or persist or if there are any questions or concerns that arise at home. ED course: Case discussed with Dr. Trejo. He accepts patient. All questions were answered. Discussed plan for admission with patient her daughter. Will obtain right forearm x-ray as patient with fall and tenderness of right forearm. 10/20 14:01 Order name: CBC with Diff; Complete Time: 14:48 ms3 10/20 14:01 Order name: CMP; Complete Time: 14:48 ms3 10/20 14:01 Order name: PT-INR; Complete Time: 14:48 ms3 10/20 15:39 Order name: Hemoglobin; Complete Time: 15:58 ms3 10/20 15:39 Order name: Hematocrit; Complete Time: 15:58 ms3 10/20 17:03 Order name: CBC with Automated Diff EDMS 10/20 17:03 Order name: CBC with Automated Diff EDMS 10/20 17:03 Order name: Hematocrit EDMS 10/20 17:03 Order name: Hematocrit EDMS 10/20 17:03 Order name: Hematocrit EDMS 10/20 17:03 Order name: Hemoglobin EDMS 10/20 17:03 Order name: Hemoglobin EDMS 10/20 17:03 Order name: Hemoglobin EDMS 10/20 17:03 Order name: Protime (+INR) EDMS 10/20 17:03 Order name: Protime (+INR) EDMS 10/20 17:03 Order name: PTT, Activated Partial Thromb EDMS 10/20 17:03 Order name: PTT, Activated Partial Thromb EDMS 10/20 17:04 Order name: Comprehensive Metabolic Panel EDMS 10/20 17:04 Order name: Ferritin EDMS 10/20 17:04 Order name: Iron EDMS 10/20 17:04 Order name: Magnesium EDKS 10/20 17:04 Order name: Retic Count EDMS 10/20 17:04 Order name: Vitamin B12 Level EDMS 10/20 17:13 Order name: Forearm Right XRAY ms3 10/20 18:10 Order name: RAD EDMS 10/20 17:03 Order name: NPO EDMS 10/20 17:03 Order name: EKG Electrocardiogram EDMS 10/20 17:03 Order name: EKG Electrocardiogram EDMS 10/20 17:03 Order name: EKG Electrocardiogram EDMS 10/20 17:03 Order name: EKG Electrocardiogram EDMS 10/20 17:03 Order name: EKG Electrocardiogram EDMS 10/20 17:03 Order name: EKG Electrocardiogram EDMS 10/20 17:03 Order name: EKG Electrocardiogram EDKS 10/20 17:03 Order name: EKG Electrocardiogram EDKS 10/20 17:03 Order name: EKG Electrocardiogram EDKS 10/20 17:03 Order name: EKG Electrocardiogram EDKS 10/20 17:03 Order name: EKG Electrocardiogram EDKS 10/20 17:04 Order name: CONS Physician Consult EDKS 10/20 14:01 Order name: IV Saline Lock; Complete Time: 14:36 ms3 10/20 14:01 Order name: Labs collected and sent; Complete Time: 14:36 ms3 Administered Medications: 14:15 Drug: Pantoprazole IVP 40 mg Route: IVP; Site: left forearm; hb 14:49 Drug: Pantoprazole IV 8 mg/hr Route: IV; Rate: 25 ml/hr; Site: left forearm; hb Disposition Summary: 10/20/22 14:56 Hospitalization Ordered Hospitalization Status: Inpatient Admission ms3 Provider: Racquel Fernandez ms3 Location: Telemetry/MedSurg (Inpatient) ms3 Condition: Stable ms3 Problem: new ms3 Symptoms: are unchanged ms3 Bed/Room Type: Standard ms3 Room Assignment: 429(10/20/22 18:19) dw Diagnosis - Melena ms3 - Anemia, unspecified ms3 - Essential (primary) hypertension ms3 Forms: - Medication Reconciliation Form ms3 - SBAR form ms3 Signatures: Dispatcher [employer] Fouzia Chakraborty RN RN Ivon Schaefer RN RN hb Lewis, Lynsay, RN RN 1 Shilo Yates DO DO ms3 Corrections: (The following items were deleted from the chart) 17:33 14:56 ms3 dw 18:19 17:33 406 dw dw
--- NOTE | 2022-10-20 14:56 | ER ---
Nurse's Notes [facility] Name: Fide De La Torre Age: 86 yrs Sex: Female : 1935 Arrival Date: 10/20/2022 Time: 13:23 Bed 2 Private MD: Diagnosis: Melena;Anemia, unspecified;Essential (primary) hypertension Presentation: 10/20 13:42 Chief complaint: Patient's son or daughter states: 1. Small amount of blood in stool ll1 yesterday. Dark, tar like stool today. No fever 2. Fell out of bed last week, extensive bruising noted R arm. Coronavirus screen: Vaccine status: Patient reports receiving the 2nd dose of the covid vaccine. Client denies travel out of the [place] in the last 14 days. At this time, the client does not indicate any symptoms associated with coronavirus-19. Ebola Screen: Patient denies travel to an Ebola-affected area in the 21 days before illness onset. Initial Sepsis Screen: Does the patient meet any 2 criteria? No. Patient's initial sepsis screen is negative. Does the patient have a suspected source of infection? Yes: Acute abdominal pain. Risk Assessment: Do you want to hurt yourself or someone else? Patient reports no desire to harm self or others. Onset of symptoms was October 19, 2022. 13:42 Method Of Arrival: Wheelchair ll1 13:42 Acuity: SANGEETHA 3 ll1 Triage Assessment: 13:47 General: Appears uncomfortable, Behavior is calm, cooperative, appropriate for age. ll1 Pain: Denies pain. GI: Reports lower abdominal pain, cramping, rectal bleeding, bloody stool. Historical: - Allergies: 13:41 Morphine; ll1 - Home Meds: 14:18 glipizide 5 mg Oral tab 1 tab once daily [Active]; Januvia 100 mg Oral tab 1 tab once hb daily [Active]; Lantus U-100 Insulin 100 unit/mL Sub-Q crtg [Active]; Plavix Oral [Active]; - PMHx: 13:41 Diabetes - NIDDM; diabetes mellitus; High Cholesterol; Hypertension; wheelchair bound; ll1 - PSHx: 13:41 Leo BKA; ll1 - Immunization history:: Client reports receiving the 2nd dose of the Covid vaccine. - Social history:: Smoking status: Patient denies any tobacco usage or history of. Screenin:16 [facility] ED Fall Risk Assessment (Adult) Score/Fall Risk Level 3 or more points = High hb Risk Oriented to surroundings, Maintained a safe environment, Educated pt \T\ family on fall prevention, incl call for assistance when getting out of bed, Used ambulatory aids as needed (educated on \T\ assisted with). Abuse screen: Denies threats or abuse. Denies injuries from another. Nutritional screening: No deficits noted. Tuberculosis screening: No symptoms or risk factors identified. Assessment: 14:16 General: Appears in no apparent distress. Behavior is calm, cooperative. Pain: Denies hb pain. Neuro: Level of Consciousness is awake, alert, obeys commands, Oriented to person, place, time, situation. Cardiovascular: Patient's skin is warm and dry. Respiratory: Respiratory effort is even, unlabored, Respiratory pattern is regular, symmetrical. GI: Reports bloody stool. : No signs and/or symptoms were reported regarding the genitourinary system. EENT: No signs and/or symptoms were reported regarding the EENT system. Derm: Skin is pink, warm \T\ dry. Musculoskeletal: No signs and/or symptoms reported regarding the musculoskeletal system. 15:15 Reassessment: Patient appears in no apparent distress at this time. Patient and/or hb family updated on plan of care and expected duration. Pain level reassessed. Patient is alert, oriented x 3, equal unlabored respirations, skin warm/dry/pink. 16:02 Reassessment: Patient appears in no apparent distress at this time. Patient and/or hb family updated on plan of care and expected duration. Pain level reassessed. Patient is alert, oriented x 3, equal unlabored respirations, skin warm/dry/pink. Vital Signs: 13:42 BP 130 / 54; Pulse 88; Resp 17; Temp 97.8; Pulse Ox 97% ; Weight 70.31 kg; Height 4 ft. ll1 8 in. ; 16:10 BP 125 / 50; Pulse 86; Resp 15; Pulse Ox 100% on R/A; hb 13:42 Body Mass Index 34.75 (70.31 kg, 142.24 cm) ll1 ED Course: 13:25 Patient arrived in ED. ts1 13:41 Arm band placed on. ll1 13:43 Yates, Shilo, DO is Attending Physician. ms3 13:47 Triage completed. ll1 14:14 Inserted saline lock: 20 gauge in left forearm, using aseptic technique. Blood hb collected. 14:16 Patient has correct armband on for positive identification. Provided Education on: . hb 14:16 No provider procedures requiring assistance completed. hb 14:49 Ivon Schaefer, RN is Primary Nurse. hb 14:55 Racquel Fernandez MD is Hospitalizing Provider. ms3 15:46 Hematocrit Sent. ph 15:46 Hemoglobin Sent. ph Administered Medications: 14:15 Drug: Pantoprazole IVP 40 mg Route: IVP; Site: left forearm; hb 14:49 Drug: Pantoprazole IV 8 mg/hr Route: IV; Rate: 25 ml/hr; Site: left forearm; hb Medication: 14:16 VIS not applicable for this client. hb Outcome: 14:56 Decision to Hospitalize by Provider. ms3 18:59 Patient left the ED. 5 Signatures: Hermila Montes RN RN Ivon Schaefer RN RN Yarely Foster RN RN 1 Shilo Yates DO DO ms3 Morena Jimenez PAS PAS ts1 Xochilt Bolton 5 Corrections: (The following items were deleted from the chart) 13:56 13:42 Chief complaint: Patient's son or daughter states: Small amount of blood in stool ll1 yesterday. Dark, tar like stool today. No fever ll1
[2022-10-20 15:55] LABS: Hematocrit 30.1 % (36.0-45.0)
[2022-10-20] MEDS ORDERED: ACETAMINOPHEN 500 MG TAB PO PRN (16:59)
[2022-10-20] MEDS ORDERED: ONDANSETRON 4 MG/2 ML VIAL IV PRN (16:59)
[2022-10-20] MEDS ORDERED: NA CHLORIDE 0.9% 250 ML IV SCH (17:00)
--- NOTE | 2022-10-20 18:10 | RAD REPORT ---
EXAM DESCRIPTION: RAD - Forearm Right - 10/20/2022 6:01 pm CLINICAL HISTORY: PAIN COMPARISON: No comparisons FINDINGS: Diffuse osteopenia is seen. Mild vascular atherosclerosis. Mild elbow arthritic changes. N o acute fracture or dislocation.
[2022-10-20 20:01] LABS: Hematocrit 29.7 % (36.0-45.0)
[2022-10-20 20:11] VITALS: BMI 56.2
[2022-10-20] MEDS: PANTOPRAZOLE INJ 80 MG in NA CHLORIDE 0.9% 250 ML IV SCH (20:14)
[2022-10-20] MEDS: NA CHLORIDE 0.9% 1,000 ML IV SCH (21:45)
[2022-10-20] MEDS: ATORVASTATIN 10 MG TAB PO SCH (21:45)
[2022-10-20] MEDS: CLOPIDOGREL 75 MG TABLET PO SCH (21:46)
[2022-10-21 03:17] LABS: Absolute Lymphocytes (CBC) 2.3 K/uL (0.7-4.9); Lymphocytes % 25.2 % (15.3-44.8); MCV 87.8 fL (80-100); MPV 8.4 fL (7.6-11.3); RBC Red Blood Cell Count 2.96 M/uL (3.86-4.86)
[2022-10-21 03:19] LABS: Protime INR 1.05
[2022-10-21 03:28] LABS: RBC Red Blood Cell Count 2.94 M/uL (3.86-4.86)
[2022-10-21 03:56] LABS: Albumin 2.5 g/dL (3.4-5.0); Bilirubin Total 0.4 mg/dL (0.2-1.0); Ferritin 65.5 ng/mL (8-388); Magnesium 1.8 mg/dL (1.6-2.4); Potassium 3.7 mEq/L (3.5-5.1); Protein, Total 5.3 g/dL (6.4-8.2)
--- NOTE | 2022-10-21 05:15 | P.HP ---
Certification for Inpatient Patient admitted to: Inpatient With expected LOS: >2 Midnights Patient will require the following post-hospital care: None Practitioner: I am a practitioner with admitting privileges, knowledge of patient current condition, hospital course, and medical plan of care. Services: Services provided to patient in accordance with Admission requirements found in Title 42 Section 412.3 of the Code of Federal Regulations Patient History Date of Service: 10/20/22 Reason for admission: Gastrointestinal bleeding History of Present Illness: Patient is an 86-year-old female who came to the hospital with lower GI bleed. patient had melanotic stool. Patient hemoglobin has been stable. Patient states she is doing better today. She denies any more bleeding. She wants to go ahead and start eating. However, will wait for GI to see her prior to starting the diet. At this time patient will be admitted to the hospital for further evaluation. Will get Gastroenterology consultation. Monitor H& H. Started on Protonix drip. Allergies morphine Adverse Reaction (Intermediate, Verified 10/28/17 16:56) Hallucinations Home Medications: Cholecalciferol (Vitamin D3) [Vitamin D3] 2,000 units PO DAILY 10/28/17 Clopidogrel Bisulfate [Plavix] 1 tab PO DAILY AT SUPPER 10/28/17 Ferrous Fumarate/Vit Bcomp&C [Super B-Complex Caplet] 1 tab PO DAILY AT SUPPER 10/28/17 Ferrous Sulfate [Feosol] 1 tab PO DAILY AT SUPPER 10/28/17 Sitagliptin Phosphate [Januvia*] 100 mg PO DAILY 10/28/17 Telmisartan/Hydrochlorothiazid [Micardis Hct 40-12.5 mg Tablet] 0.5 tab PO M,W,F 10/28/17 Thyroid,Pork [[place] Thyroid] 90 mg PO DAILY 10/28/17 Blood Sugar Diagnostic [Glucose Test Strip] 1 each MC BID #60 strip 11/08/17 Docusate/Senna [Senokot-S*] 2 tab PO BEDTIME PRN #60 tab 11/08/17 Insulin Glargine,Hum.rec.anlog [Lantus] 12 unit SQ BEDTIME #10 ml 11/08/17 Lancets [Lancets Thin] 1 each MC BID #60 each 11/08/17 glipiZIDE [Glucotrol*] 2.5 mg PO BIDAC #30 tab 11/08/17 Atorvastatin Calcium [Lipitor] 10 mg PO BEDTIME 10/20/22 Zinc Gluconate [Zinc] 30 mg PO BID 10/20/22 - Past Medical/Surgical History Has patient received pneumonia vaccine in the past: Yes Diabetic: Yes -: Hypertension -: DM2 -: hypothyroidism -: bilateral BKAs -: hysterectomy -: shoulder R -: cataracts removed bilat. - Family History Mother Medical History: Heart disease, Diabetes - Social History Smoking Status: Never smoker Alcohol use: No CD- Drugs: No Caffeine use: Yes Place of Residence: Home Review of Systems 10-point ROS is otherwise unremarkable Physical Examination - Vital Signs Temperature: 98.0 F Blood Pressure: 109/49 Pulse: 74 Respirations: 18 Pulse Ox (%): 94 - Physical Exam General: Alert, In no apparent distress, Oriented x3 HEENT: Atraumatic, PERRLA, Mucous membr. moist/pink, EOMI, Sclerae nonicteric Neck: Supple, 2+ carotid pulse no bruit, No LAD, Without JVD or thyroid abnormality Respiratory: Clear to auscultation bilaterally, Normal air movement Cardiovascular: Regular rate/rhythm, Normal S1 S2 Gastrointestinal: Normal bowel sounds, Soft and benign, Non-distended, No tenderness, No rebound, No guarding Musculoskeletal: No clubbing, No swelling, No tenderness Integumentary: No rashes Neurological: Normal gait, Normal speech, Normal strength at 5/5 x4 extr, Normal tone, Sensation intact, Cranial nerves 3-12 intact, Normal affect Lymphatics: No axilla or inguinal lymphadenopathy - Studies Laboratory Data (last 24 hrs) 10/20/22 10/20/22 10/20/22 15:45 14:15 14:15 WBC Hgb 10.0 L Hct 30.1 L Plt Count PT 11.1 INR 1.01 Sodium 136 Potassium 4.2 BUN 31 H Creatinine 1.05 H Glucose 316 H Total Bilirubin 0.3 AST 14 L ALT 23 Alkaline Phosphatase 64 10/20/22 14:15 WBC 11.40 H Hgb 10.6 L Hct 32.1 L Plt Count 308 PT INR Sodium Potassium BUN Creatinine Glucose Total Bilirubin AST ALT Alkaline Phosphatase Assessment & Plan - Problems (Diagnosis) (1) GI bleed Current Visit: Yes Status: Acute - Plan 1. Continue with IV hydration and PPI drip 2. Monitor orthostatics 3. Continue with pain control 4. NPO 5. GI/General surgery consultation 6. Monitor serial H&H. 7. GI and DVT prophylaxis Discharge Plan: Home Plan to discharge in: Greater than 2 days - Advance Directives Does patient have a Living Will: No Does patient have a Durable POA for Healthcare: No - Code Status/Comfort Care Code Status Assessed: Yes Code Status: Full Code Critical Care: No Time Spent Managing PTS Care (In Minutes): 45
[2022-10-21] MEDS: PANTOPRAZOLE INJ 80 MG in NA CHLORIDE 0.9% 250 ML IV SCH ×2 (06:16→23:00)
[2022-10-21] MEDS: CLOPIDOGREL 75 MG TABLET PO SCH ×3 (08:00→22:19)
[2022-10-21] MEDS: NA CHLORIDE 0.9% 1,000 ML IV SCH ×2 (08:02→23:04)
[2022-10-21 13:15] LABS: Specific Gravity 1.019 (1.005-1.030); Urine Bilirubin NEGATIVE (Negative); Urine Blood Negative (Negative); Urine Clarity Clear (Clear); Urine Color Light-Yellow (Yellow); Urine Glucose 1+ (Negative); Urine Protein NEGATIVE (Negative); Urine Urobilinogen Normal (Normal); Urine pH 5.5 (5.0-7.0)
[2022-10-21] MEDS ORDERED: PANTOPRAZOLE INJ 80 MG in NA CHLORIDE 0.9% 250 ML IV SCH (18:00)
[2022-10-21] MEDS ORDERED: NS 0.9% VIAL 20 ML ONE (18:44)
[2022-10-21] MEDS ORDERED: Phenylephrine HCl 10 MG/ML 1 ML VIAL ONE (18:44)
[2022-10-21] MEDS ORDERED: EPHEDRINE SULF 50 MG/ML VIAL ONE (18:44)
[2022-10-21] MEDS ORDERED: propofoL 200 MG/20 ML VIAL IV ONE (18:44)
[2022-10-21] MEDS ORDERED: GOLYTELY 4000 ML PO SCH (20:00)
[2022-10-21] MEDS ORDERED: MAGNESIUM CITRATE 300 ML BOT PO SCH (20:00)
[2022-10-21] MEDS: METOCLOPRAMIDE 10 MG/2mL INJ IV SCH (22:18)
[2022-10-21] MEDS: ATORVASTATIN 10 MG TAB PO SCH (22:18)
--- NOTE | 2022-10-22 00:06 | CON ---
Date of Consultation: 10/21/2022 Reason For Consultation: Gastrointestinal bleed with melena, hematochezia. History Of Present Illness: Patient is an 86-year-old white female with history of diabetes, hyperte nsion, tobacco abuse in the past, peripheral vascular disease, status post bilateral above-knee amput ations. The patient presents to the hospital with she states bright red blood per rectum. However, her clinical notes shows her daughter reported melena. She also has weakness and some fatigue, but n o hematemesis, abdominal pain, nausea, vomiting, fevers, chills, night sweats, change in bowel habits . Past Medical History: Significant for diabetes; hypertension; tobacco abuse, quit approximately 2012 , 10 years ago; hyperlipidemia; peripheral vascular disease with bilateral AKAs; hypothyroidism; hyst erectomy; right shoulder surgery; and bilateral cataract surgeries. Medications: Include vitamin D3, Plavix, Flexeril, Super B Complex, Feosol, Seroquel, Januvia, Micar dis, [place] Thyroid, Senokot, insulin Lantus, Lidoderm cream, glipizide, Cipro, Lipitor, and zinc. Allergies: MORPHINE. THIS GIVES HER HALLUCINATIONS IT APPEARS. Social History: She is a , 6 children, 2 boys and 4 girls. She says she quit tobacco 10 years ago. No alcohol. Family History: Does know the cause of of her father. Mother had heart disease, she reports a s a cause of . Review of Systems: Patient has melena, hematochezia, weakness, fatigue. She denies any nausea, vomiting, fevers, chills , night sweats, chest pain, shortness of breath, seizure, syncope, muscle aches, joint aches, backach es, hematemesis, coffee-grounds emesis, abdominal pain, change in bowel habits, diarrhea, constipatio n, change in weight. Last colonoscopy was somewhat "5 years ago." There is no records to date. Physical Examination: Vital Signs: Patient is 3 feet 8 inches, 155 pounds, BMI 56.3 kg/sq m. She has no . She has a temperature 97.4 degrees Fahrenheit, pulse 72, respirations 16, blood pressure 101/68, O2 satur ation 96%. HEENT: Normocephalic, atraumatic. Anicteric. Pupils equal, round, and reactive to light. Extraocu lar movements are intact. Oropharynx is clear. Neck: Supple. No masses. Respirations: Clear to auscultation bilaterally. Cardiac: Regular rate and rhythm. Gastrointestinal: Positive bowel sounds. Soft, nontender, nondistended. Slightly obese. No hepato splenomegaly. No peritoneal or King signs. Extremities: It appears she has [id number] amputations bilaterally. Neuro: Alert and oriented x3. Able to move upper extremities well and of her lower extre mities. Data: Patient has a white count of 9.3, down from 11.4 yesterday; hemoglobin of 8.8, down from 10.6 yesterday on admission; MCV of 88; platelet count of 253; polys of 63%; lymphocytes 25%; monocytes 8% ; eosinophils 3%. PT of 11.5, INR of 1.05, PTT 29.5. Sodium 139, potassium 4.7, chloride 111, bicar b 27, BUN of 27, creatinine of 0.9, glucose 99, calcium 8.9. Magnesium 1.8. Iron low at 39, ferriti n normal at 66. Total bilirubin 0.4, AST of 12, ALT of 18, alk phos 63, total protein 5.3, albumin 2 .5. Vitamin B12 of 1942. UA just showed 1+ glucose, otherwise negative. Impression: 1.Gastrointestinal bleed with melena and possible hematemesis. As per patient, weakness, fatigue, b ut no hematemesis, coffee-grounds emesis, nausea, vomiting, abdominal pain, chest pain, shortness of breath, seizure, syncope, change in bowel habits. Patient's last colonoscopy was somewhat years ago according to the patient. 2.Anemia. Hemoglobin down to 8.8 from 10.6 since admission. 3.History of diabetes, hypertension, hyperlipidemia, peripheral vascular disease, status post bilate ral above-knee amputations, hysterectomy, hypothyroidism, right shoulder surgery, and bilateral catar act surgeries. Recommendations: 1.Continue IV fluids resuscitation. 2.PPI therapy. 3.Emergent EGD and consider colonoscopy. Next serial H and H and transfuse p.r.n. Keep patient n.p .o. to EGD. ABDIRASHID Voice ID: [id number] Report ID: [id number]
[2022-10-22] MEDS: METOCLOPRAMIDE 10 MG/2mL INJ IV SCH (02:00)
[2022-10-22 04:10] LABS: Absolute Lymphocytes (CBC) 0.8 K/uL (0.7-4.9); Hematocrit 27.2 % (36.0-45.0); Lymphocytes % 5.1 % (15.3-44.8); MCV 88.8 fL (80-100); MPV 8.3 fL (7.6-11.3); RBC Red Blood Cell Count 3.06 M/uL (3.86-4.86)
[2022-10-22 04:15] LABS: Magnesium 2.2 mg/dL (1.6-2.4)
[2022-10-22 05:04] LABS: Blood Morphology Comment NOT SEEN (NOT SEEN); Platelet Estimate ADEQ
[2022-10-22] MEDS: NA CHLORIDE 0.9% 1,000 ML IV SCH ×2 (09:00→12:55)
[2022-10-22] MEDS: PANTOPRAZOLE INJ 80 MG in NA CHLORIDE 0.9% 250 ML IV SCH ×2 (09:25→22:45)
[2022-10-22] MEDS ORDERED: CEFTRIAXONE 1,000 MG in NA CHLORIDE 0.9% 50 ML IVPB ONE (11:02)
--- NOTE | 2022-10-22 11:05 | P.PN ---
Subjective Date of Service: 10/21/22 Patient is clinically doing better. Patient denies any new complaints. Clinical symptoms are much better. Working on discharge planning. However gastroenterology came by and want to do colonoscopy in the morning. Patient will begin prep tonight. Review of Systems 10-point ROS is otherwise unremarkable Physical Examination - Vital Signs Temperature: 98.0 F Blood Pressure: 109/49 Pulse: 74 Respirations: 18 Pulse Ox (%): 94 - Physical Exam General: Alert, In no apparent distress HEENT: Atraumatic, PERRLA, EOMI Neck: Supple, JVD not distended Respiratory: Clear to auscultation bilaterally, Normal air movement Cardiovascular: Regular rate/rhythm, Normal S1 S2 Gastrointestinal: Normal bowel sounds, No tenderness Musculoskeletal: No tenderness Integumentary: No rashes Neurological: Normal speech, Normal tone, Normal affect Lymphatics: No axilla or inguinal lymphadenopathy - Studies Medications List Reviewed: Yes Assessment & Plan - Problems (Diagnosis) (1) GI bleed Current Visit: Yes Status: Acute - Plan 1. Continue with IV hydration and PPI drip 2. Monitor orthostatics 3. Continue with pain control 4. NPO 5. GI Consultation appreciated. Colonoscopy in AM. 6. Monitor serial H&H. 7. GI and DVT prophylaxis Discharge Plan: Home Plan to discharge in: 24 Hours - Advance Directives Does patient have a Living Will: No Does patient have a Durable POA for Healthcare: No - Code Status/Comfort Care Code Status: Full Code Critical Care: No Time Spent Managing PTS Care (In Minutes): 35
[2022-10-22 15:57] LABS: Hematocrit 24.7 % (36.0-45.0); Lymphocytes % 17.2 % (15.3-44.8); MCV 88.2 fL (80-100); MPV 8.8 fL (7.6-11.3)
[2022-10-22] MEDS ORDERED: MAGNESIUM CITRATE 300 ML BOT PO SCH (16:00)
[2022-10-22] MEDS: METRONIDAZOLE 500mg IVPB 500 MG/100 ML BAG IV SCH (16:11)
[2022-10-22] MEDS: CLOPIDOGREL 75 MG TABLET PO SCH (21:00)
[2022-10-22] MEDS: ATORVASTATIN 10 MG TAB PO SCH (22:45)
[2022-10-23] MEDS: METRONIDAZOLE 500mg IVPB 500 MG/100 ML BAG IV SCH ×3 (01:49→17:45)
[2022-10-23] MEDS: NA CHLORIDE 0.9% 1,000 ML IV SCH ×2 (04:01→17:23)
--- NOTE | 2022-10-23 04:32 | P.PN ---
Date of Service: 10/22/22 Subjective Patient is doing well. Patient was hoping to go home today but unable to get colonoscopy done today so we will do it tomorrow. If hemoglobin remains stable then we should get her discharged tomorrow. No signs of active bleeding at this time. Physical Examination - Vital Signs Reviewed - Physical Exam General: Alert, In no apparent distress Respiratory: Clear to auscultation bilaterally, Normal air movement Cardiovascular: Regular rate/rhythm, Normal S1 S2 Gastrointestinal: Normal bowel sounds, No tenderness Neurological: No focal deficits Assessment & Plan - Problems (Diagnosis) (1) GI bleed Current Visit: Yes Status: Acute (2) DM2 Current Visit: Yes Status: Acute (3) Hypertension Current Visit: Yes Status: Acute (4) Hypothyroid Current Visit: Yes Status: Acute (5) Bilateral BKA Current Visit: Yes Status: Chronic - Plan Continue with plan of care as mentioned below: 1. Continue with IV hydration and PPI drip 2. Monitor orthostatics 3. Continue with pain control 4. NPO 5. GI Consultation appreciated. Colonoscopy rescheduled for in the AM. 6. Monitor H&H. 7. GI and DVT prophylaxis Discharge Plan: Home Plan to discharge in: 24 Hours - Advance Directives Does patient have a Living Will: No Does patient have a Durable POA for Healthcare: No - Code Status/Comfort Care Code Status: Full Code Critical Care: No Time Spent Managing PTS Care (In Minutes): 25
[2022-10-23 07:09] LABS: Absolute Lymphocytes (CBC) 1.7 K/uL (0.7-4.9); Hematocrit 22.7 % (36.0-45.0); Lymphocytes % 16.2 % (15.3-44.8); RBC Red Blood Cell Count 2.55 M/uL (3.86-4.86)
[2022-10-23 07:40] LABS: Albumin 2.5 g/dL (3.4-5.0); Bilirubin Total 0.3 mg/dL (0.2-1.0); Magnesium 2.2 mg/dL (1.6-2.4); Potassium 3.5 mEq/L (3.5-5.1); Protein, Total 5.3 g/dL (6.4-8.2)
[2022-10-23] MEDS: SOD FERRIC GLUC COMPLX/SUCROSE 125 MG in NA CHLORIDE 0.9% 100 ML IV SCH (08:46)
[2022-10-23] MEDS: PANTOPRAZOLE INJ 80 MG in NA CHLORIDE 0.9% 250 ML IV SCH ×3 (08:48→23:43)
[2022-10-23] MEDS ORDERED: propofoL 200 MG/20 ML VIAL IV ONE ×2 (13:41→14:17)
[2022-10-23] MEDS ORDERED: LIDOCAINE 1% MPF 30 ML VIAL ONE (13:42)
--- NOTE | 2022-10-23 13:54 | P.PN ---
Subjective Date of Service: 10/22/22 Chief Complaint: Gastrointestinal bleeding Subjective: New changes (Hgb up to 9.0 and then to 8.0.) Physical Examination - Vital Signs Temperature: 98.0 F Blood Pressure: 173/59 Pulse: 72 Respirations: 18 Pulse Ox (%): 93 - Studies Medications List Reviewed: Yes Assessment And Plan - Current Problems (Diagnosis) (1) Melena Current Visit: Yes Status: Acute (2) Hematochezia Current Visit: Yes Status: Acute (3) Anemia Current Visit: Yes Status: Acute (4) GI bleed Current Visit: Yes Status: Acute - Plan REC: 1) continue PPI therapy 2) colonoscopy tomorrow
--- NOTE | 2022-10-23 13:57 | P.PN ---
Subjective Date of Service: 10/23/22 Chief Complaint: Gastrointestinal bleeding, melena, hematochezia, EGD -> gastritis with spec Subjective: New changes (EGD -> gastritis with specks of heme.) Review of Systems 10-point ROS is otherwise unremarkable General: Weakness Physical Examination - Vital Signs Temperature: 98.0 F Blood Pressure: 173/59 Pulse: 72 Respirations: 18 Pulse Ox (%): 93 - Physical Exam General: Alert, In no apparent distress, Oriented x3, Cooperative HEENT: Atraumatic, Normocephalic, PERRLA, EOMI Neck: Supple Respiratory: Normal air movement Cardiovascular: Normal pulses Gastrointestinal: Soft and benign, No tenderness, No rebound, No guarding Neurological: Normal speech - Studies Medications List Reviewed: Yes Assessment And Plan - Current Problems (Diagnosis) (1) Melena Current Visit: Yes Status: Acute (2) Hematochezia Current Visit: Yes Status: Acute (3) Anemia Current Visit: Yes Status: Acute (4) GI bleed Current Visit: Yes Status: Acute (5) Gastritis Current Visit: Yes Status: Acute - Plan REC: 1) continue PPI therapy 2) colonoscopy today
[2022-10-23 14:35] VITALS: O2SAT 94
--- NOTE | 2022-10-23 17:16 | P.PN ---
Subjective Date of Service: 10/23/22 Chief Complaint: Gastrointestinal bleeding, melena, hematochezia, EGD -> gastritis with spec No acute events overnight. She reports that she feels well this morning. She denies any chest pain, palpitations, shortness of breath, hematochezia, melena, or nausea/vomiting. She denies any obvious bleeding; however, her hemoglobin continues to downtrend. Review of Systems 10-point ROS is otherwise unremarkable General: Weakness (generalized) Physical Examination - Vital Signs Temperature: 97.7 F Blood Pressure: 150/54 Pulse: 64 Respirations: 20 Pulse Ox (%): 93 - Physical Exam General: Alert, In no apparent distress, Oriented x3 HEENT: Atraumatic, Sclerae nonicteric Neck: JVD not distended Respiratory: Clear to auscultation bilaterally, Normal air movement Cardiovascular: No edema, Regular rate/rhythm, Normal S1 S2, No gallops, No rubs, No murmurs Gastrointestinal: Normal bowel sounds, Soft and benign, Non-distended, No tenderness, No rebound, No guarding Musculoskeletal: No clubbing, Other (s/p bilateral BKA) Integumentary: No rashes Neurological: Normal speech, Normal affect - Studies Medications List Reviewed: Yes Assessment And Plan - Plan # Acute Blood Loss Anemia suspect due to Lower Gastrointestinal Bleed - Consulted Gastroenterology - recommendations appreciated - Dr. Enriquez planning for colonoscopy today ~ 13:30 - Serial H&H - 10.6 -> 10.0 -> 9.9 -> 8.8 -> 9.0 -> 8.0 -> 7.6 - Transfuse for Hgb < 7.0 - 2 large bore IVs - Continue pantoprazole drip - Continue empiric ceftriaxone + metronidazole for now - Hold home clopidogrel for now - NPO # Hyperglycemia in Type II Diabetes Mellitus # History of Bilateral BKA - Correction scale insulin # Hypertension - Hold home anti-hypertensives given concern for GI bleed # Dyslipidemia - Continue home atorvastatin # Hypothyroidism - Reconcile home medications once verified [place] M.D.
[2022-10-23 20:55] LABS: Hematocrit 27.1 % (36.0-45.0)
[2022-10-23] MEDS: ATORVASTATIN 10 MG TAB PO SCH (21:09)
[2022-10-24] MEDS: METRONIDAZOLE 500mg IVPB 500 MG/100 ML BAG IV SCH ×2 (00:35→09:00)
[2022-10-24] MEDS: PANTOPRAZOLE INJ 80 MG in NA CHLORIDE 0.9% 250 ML IV SCH ×2 (01:00→13:24)
[2022-10-24 04:49] VITALS: TEMP 98.2
[2022-10-24 07:01] LABS: Hematocrit 23.6 % (36.0-45.0)
--- NOTE | 2022-10-24 10:11 | RAD REPORT ---
EXAM DESCRIPTION: RAD - Small Bowel Series - 10/24/2022 9:48 am CLINICAL HISTORY: Abdominal pain/ gastrointestinal bleed COMPARISON: None. FINDINGS: Gastroesophageal reflux Contrast enters the colon by approximately 1 hour 20 minutes. The mucosal folds of the small bowel appear normal. No permanent filling defects, obstructing or constricting lesions are seen. The small bowel caliber is normal. IMPRESSION: Unremarkable small bowel series.
[2022-10-24] MEDS ORDERED: INSULIN -REGULAR HUMAN 50 UNIT/0.5 ML ML SQ SCH (11:30)
[2022-10-24] MEDS: SOD FERRIC GLUC COMPLX/SUCROSE 125 MG in NA CHLORIDE 0.9% 100 ML IV SCH (11:39)
[2022-10-24] MEDS ORDERED: D50W 25 GM/50 ML SYRINGE IV PRN (13:03)
[2022-10-24] MEDS ORDERED: GLUCAGON 1 MG/VIAL IM PRN (13:03)
[2022-10-24] MEDS ORDERED: D10W 125 ML IV PRN (13:18)
[2022-10-24 13:24] LABS: Hematocrit 27.2 % (36.0-45.0)
--- NOTE | 2022-10-24 14:25 | P.DS ---
Admission Date: 10/20/22 Discharge Date: 10/24/22 Disposition: ROUTINE DISCHARGE Discharge Condition: GOOD Reason for Admission: Gastrointestinal bleeding, melena, hematochezia, EGD -> gastritis with spec Consultations: 1. Gastroenterology Procedures: - 10/23/2022 - Esophagogastroduodenoscopy and Colonoscopy Hospital Course: DIAGNOSES: # Acute Blood Loss Anemia suspect due to Lower Gastrointestinal Bleed # Hyperglycemia in Type II Diabetes Mellitus # History of Bilateral BKA # Hypertension # Dyslipidemia # Hypothyroidism HOSPITAL COURSE: Ms. Fide De La Torre is a pleasant 86 year old female with a past medical history significant for type II diabetes mellitus, hypertension, dyslipidemia, and hypothyroidism who was admitted to the [facility] on 10/20/2022 for melena. She was admitted to the Medicine service. Upon further evaluation, her hemoglobin had dropped from 10.6 to as low as 7.6. Gastroenterology was consulted and she was evaluated by Dr. Enriquez. On 10/23/2022, she underwent an esophagogastroduodenoscopy and colonoscopy, which revealed a cecal arteriovenous malformation, which did not require treatment. The bowel preparation was suboptimal. He recommended a small bowel series, which revealed, "unremarkable small bowel series." Over the course of her hospitalization, her melenic stools resolved and her hemoglobin levels have remained stable. Dr. Enriquez has cleared her for discharge with outpatient follow-up. This afternoon, she states that she felt significantly better and would like to be discharged home. On 10/24/2022, she was seen on rounds and deemed medically stable for discharge. She was discharged with instructions to schedule follow-up appointments with her PCP (Dr. Lindsey) and with Gastroenterology (Dr. Enriquez). She was provided prescriptions for cefdinir, metronidazole, and pantoprazole. She was given the opportunity to ask questions and reported no further questions. Furthermore, all questions were answered to the best of my ability. A copy of this discharge summary will be sent to the above providers to facilitate continuity of care. Today, I personally spent 25 minutes on her case, of which greater than 50% of the time was spent in patient education, counseling, and coordination of care as described above. - Physical Exam General: Alert, In no apparent distress, Oriented x3 HEENT: Atraumatic, Sclerae nonicteric Neck: JVD not distended Respiratory: Clear to auscultation bilaterally, Normal air movement Cardiovascular: No edema, Regular rate/rhythm, No murmurs Gastrointestinal: Normal bowel sounds, Soft, Non-distended, No tenderness Musculoskeletal: No clubbing, Other (s/p bilateral BKA) Integumentary: No rashes Neurological: Normal speech, Normal affect Vital Signs/Physical Exam: Temp Pulse Resp BP Pulse Ox 98.2 F 72 17 167/70 H 93 10/24/22 08:00 10/24/22 08:00 10/24/22 08:00 10/24/22 08:00 10/24/22 08:00 Laboratory Data at Discharge: WBC 10.80 thou/uL (4.3-10.9) 10/23/22 06:50 Hgb 8.6 g/dL (12.0-15.0) L D 10/24/22 13:06 Hct 27.2 % (36.0-45.0) L 10/24/22 13:06 Plt Count 265 thou/uL (152-406) 10/23/22 06:50 PT 11.5 SECONDS (9.5-12.5) 10/21/22 02:43 INR 1.05 10/21/22 02:43 APTT 29.5 SECONDS (24.3-36.9) 10/21/22 02:43 Sodium 142 mEq/L (136-145) 10/23/22 06:50 Potassium 3.5 mEq/L (3.5-5.1) 10/23/22 06:50 BUN 8 mg/dL (7-18) 10/23/22 06:50 Creatinine 0.76 mg/dL (0.55-1.02) 10/23/22 06:50 Glucose 180 mg/dL (74-106) H 10/23/22 06:50 Magnesium 2.2 mg/dL (1.6-2.4) 10/23/22 06:50 Total Bilirubin 0.3 mg/dL (0.2-1.0) 10/23/22 06:50 AST 20 U/L (15-37) 10/23/22 06:50 ALT 20 U/L (13-56) 10/23/22 06:50 Alkaline Phosphatase 55 U/L (45-117) 10/23/22 06:50 Home Medications: Cholecalciferol (Vitamin D3) [Vitamin D3] 2,000 units PO DAILY 10/28/17 Clopidogrel Bisulfate [Plavix] 1 tab PO DAILY AT SUPPER 10/28/17 Ferrous Fumarate/Vit Bcomp&C [Super B-Complex Caplet] 1 tab PO DAILY AT SUPPER 10/28/17 Ferrous Sulfate [Feosol] 1 tab PO DAILY AT SUPPER 10/28/17 Sitagliptin Phosphate [Januvia*] 100 mg PO DAILY 10/28/17 Telmisartan/Hydrochlorothiazid [Micardis Hct 40-12.5 mg Tablet] 0.5 tab PO M,W,F 10/28/17 Thyroid,Pork [[place] Thyroid] 90 mg PO DAILY 10/28/17 Blood Sugar Diagnostic [Glucose Test Strip] 1 each MC BID #60 strip 11/08/17 Docusate/Senna [Senokot-S*] 2 tab PO BEDTIME PRN #60 tab 11/08/17 Insulin Glargine,Hum.rec.anlog [Lantus] 12 unit SQ BEDTIME #10 ml 11/08/17 Lancets [Lancets Thin] 1 each MC BID #60 each 11/08/17 glipiZIDE [Glucotrol*] 2.5 mg PO BIDAC #30 tab 11/08/17 Atorvastatin Calcium [Lipitor*] 10 mg PO BEDTIME 10/20/22 Zinc Gluconate [Zinc] 30 mg PO BID 10/20/22 Cefdinir [Cefdinir*] 300 mg PO BID 7 Days #14 cap 10/24/22 Metronidazole 500 mg PO Q8H 7 Days #21 tab 10/24/22 Pantoprazole Sodium 40 mg PO BID #60 tab 10/24/22 New Medications: Cefdinir [Cefdinir*] 300 mg PO BID 7 Days #14 cap Metronidazole 500 mg PO Q8H 7 Days #21 tab Pantoprazole Sodium 40 mg PO BID #60 tab Physician Discharge Instructions: 1. Please call and schedule a follow-up appointment with your PCP (Dr. Lindsey) in 3-5 days Please do not take any [id number]-[id number] anti-inflammatory medications (i.e. ibuprofen, naproxen, Aleve, Motrin, Advil, etc.). You may take Tylenol (acetaminophen) 650 mg every 6 hours as needed. 2. Please call and schedule a follow-up appointment with Gastroenterology (Dr. Enriquez) in 3-5 days Diet: AHA Activity: Ad [place] Followup: Mavis Lindsey MD [OUTSIDE PHYSICIAN] - Mick Enriquez MD [ASSOCIATE-ACTIVE - CAN ADMIT] - Time spent managing pt's care (in minutes): 25
[2022-10-24 17:17] VITALS: BP 170/78
== END 2022-10-24 18:00 | disposition home or self-care (01) | DRG 378 ==
LOC: ER 13:23 → ERHOLD 16:59 → 4TH 17:52
PROVIDERS: ADMIT Hospitalist; ATTEND Internal Medicine
PROC: 0DB78ZX Excision of Stomach, Pylorus, Via Natural or Artificial Opening Endoscopic, Diagnostic (ICD-10-PCS; 2022-10-21)
PROC: 0DB68ZX Excision of Stomach, Via Natural or Artificial Opening Endoscopic, Diagnostic (ICD-10-PCS; principal; 2022-10-21 18:00)
PROC: 0DJD8ZZ Inspection of Lower Intestinal Tract, Via Natural or Artificial Opening Endoscopic (ICD-10-PCS; 2022-10-23)
DX: K31.811 Angiodysplasia of stomach and duodenum with bleeding (principal); D62 Acute posthemorrhagic anemia; K29.01 Acute gastritis with bleeding; I10 Essential (primary) hypertension; E11.65 Type 2 diabetes mellitus with hyperglycemia; E11.51 Type 2 diabetes mellitus with diabetic peripheral angiopathy without gangrene; K64.8 Other hemorrhoids; E78.00 Pure hypercholesterolemia, unspecified; E03.9 Hypothyroidism, unspecified; K57.31 Diverticulosis of large intestine without perforation or abscess with bleeding; Z88.5 Allergy status to narcotic agent; Z99.3 Dependence on wheelchair; Z79.4 Long term (current) use of insulin; Z98.42 Cataract extraction status, left eye; Z79.84 Long term (current) use of oral hypoglycemic drugs; Z79.02 Long term (current) use of antithrombotics/antiplatelets; Z98.41 Cataract extraction status, right eye; Z89.512 Acquired absence of left leg below knee; Z87.891 Personal history of nicotine dependence; Z79.899 Other long term (current) drug therapy; Z89.511 Acquired absence of right leg below knee; Z90.710 Acquired absence of both cervix and uterus
CPT/HCPCS: 36415; 74250; 80048; 80053; 81003; 82607; 82728; 82947; 83540; 83735; 85014; 85018; 85025; 85044; 85610; 85730; 86850; 86900; 86901; 88305; 88312; 96374; 99284; A4216; C9113; J0696; J1815; J2001; J2371; J2405; J2704; J2765; J2916; J7030; J7050